=== PATIENT | female | born 1935 | race Caucasian/White ===

== ENCOUNTER 2019-03-02 19:21 | Inpatient (IN) | payer MEDICARE, OTHER ==
[2019-03-02 20:02] LABS: CHLORIDE,CL 109 mEq/L (98-106); SODIUM,NA 144 mEq/L (136-145)
--- NOTE | 2019-03-02 20:14 | EDM.PDOC ---
ED HPI GENERAL MEDICAL PROBLEM - General Chief Complaint: General Stated Complaint: abd pain Time Seen by Provider: 03/02/19 19:45 Source of Information: Reports: Patient History Limitations: Reports: No Limitations - History of Present Illness INITIAL COMMENTS - FREE TEXT/NARRATIVE: Yenifer is a 84 yr old female who started having abdominal pain roughly a week ago. States the pain would come and go but today has been more constant. She states it starts in her right upper quadrant and radiates around to her mid abdomen. She admits to multiple episodes of diarrhea which has been daily since onset as well. She states today she started having dry heaves but nothing would come up. Last meal was for dinner and had some yogurt. She is still passing gas and does get some relief. Denies any blood in her stools, states it is more mucous than anything. Has been on antibiotics recently but isn't sure what it is. I reviewed Yenifer's clinic chart and it appears she has been dealing with RUQ pain for since the beginning of December and recently underwent a CT scan of the abdomen/pelvis. In review of the CT results, it appears she has some splenomegaly and masses within the spleen. She is suppose to be undergoing biopsy at [facility] to rule out lymphoma. Upper Abdomen Pain Score (Numeric/FACES): 6 - Related Data Allergies Allergy/AdvReac Type Severity Reaction Status Date / Time No Known Allergies Allergy Verified 03/02/19 19:30 Home Meds: Home Meds Furosemide [Lasix] 40 mg PO DAILY 03/27/14 [History] Verapamil [Verelan] 240 mg PO DAILY 03/27/14 [History] Morphine [MS Contin] 15 mg PO BID 03/01/17 [History] ALPRAZolam [Alprazolam] 0.25 mg PO Q8HR PRN 03/02/18 [History] Furosemide [Lasix] 20 mg PO WITHLUNCH 03/02/18 [History] Pantoprazole [ProTONIX] 40 mg PO DAILY 03/02/19 [History] Past Medical History HEENT History: Reports: Cataract Cardiovascular History: Reports: Heart Failure, High Cholesterol, Hypertension Respiratory History: Reports: None Gastrointestinal History: Reports: GERD, Other (See Below) (splenomegaly) Genitourinary History: Reports: Urinary Incontinence Musculoskeletal History: Reports: Osteoarthritis, Osteoporosis Psychiatric History: Reports: Anxiety, Depression Hematologic History: Reports: Anemia, Idiopathic Thrombocytopenia - Past Surgical History GI Surgical History: Reports: Appendectomy, Cholecystectomy Female Surgical History: Reports: Hysterectomy, Tubal Ligation Musculoskeletal Surgical History: Reports: Knee Replacement Social & Family History - Family History Family Medical History: Noncontributory - Tobacco Use Smoking Status *Q: Never Smoker Second Hand Smoke Exposure: No - Alcohol Use Alcohol Use History: No - Living Situation & Occupation Living situation: Reports: Alone Occupation: Retired ED ROS GENERAL - Review of Systems Review Of Systems: See Below Constitutional: Reports: Decreased Appetite. Denies: Fever, Chills HEENT: Reports: No Symptoms Respiratory: Reports: No Symptoms. Denies: Shortness of Breath, Wheezing, Cough Cardiovascular: Reports: No Symptoms. Denies: Chest Pain, Lightheadedness, Palpitations GI/Abdominal: Reports: Abdominal Pain, Diarrhea, Flatus, Mucous in Stool, Nausea , Vomiting (dry heaves). Denies: Black Stool, Bloody Stool, Hematemesis, Hematochezia : Reports: Incontinence. Denies: Dysuria, Hematuria Musculoskeletal: Reports: No Symptoms Skin: Reports: No Symptoms Neurological: Reports: Headache Psychiatric: Reports: No Symptoms ED EXAM, GENERAL - Physical Exam Exam: See Below Exam Limited By: No Limitations General Appearance: Alert, Mild Distress Ears: Normal External Exam, Normal Canal, Normal TMs, Hearing Loss (bilateral hearing aids) Nose: Normal Inspection, Normal Mucosa, No Blood Throat/Mouth: Normal Inspection, Normal Lips, Normal Teeth, Normal Gums, Normal Oropharynx, Normal Voice, No Airway Compromise Head: Atraumatic, Normocephalic Neck: Normal Inspection, Supple Respiratory/Chest: No Respiratory Distress, Lungs Clear, Normal Breath Sounds, No Accessory Muscle Use Cardiovascular: Regular Rate, Rhythm, No Edema, No Murmur Peripheral Pulses: 2+: Posterior Tibial (L), Posterior Tibial (R), Dorsalis Pedis (L), Dorsalis Pedis (R) GI/Abdominal: No Mass, Tender (RUQ). No: Guarding, Rigid, Hepatomegaly, Splenomegaly Back Exam: No: CVA Tenderness (L), CVA Tenderness (R) Neurological: Alert, Normal Cognition Psychiatric: Normal Affect, Normal Mood Skin Exam: Warm, Dry, Intact, Normal Color, No Rash Course - Vital Signs Last Recorded V/S: Last Vital Signs Temp 96.9 F 03/02/19 19:30 Pulse 110 H 03/02/19 19:30 Resp 18 03/02/19 19:30 BP 143/91 H 03/02/19 19:30 Pulse Ox 96 03/02/19 19:30 - Orders/Labs/Meds Orders: Active Orders 24 hr Category Date Time Status Abdomen 2V AP Flat Upright [CR] Stat Exams 03/02/19 19:40 Taken Labs: Laboratory Tests 03/02/19 03/02/19 Range/Units 19:45 19:45 WBC 5.1 (5.0-10.0) 10^3/uL RBC 5.76 H (4.00-5.50) 10^6/uL Hgb 15.0 (12.0-16.0) g/dL Hct 45.0 (37.0-47.0) % MCV 78.1 L (82.0-94.0) fL MCH 26.0 L (27.0-32.0) pg MCHC 33.3 (33.0-38.0) g/dL RDW Coeff of John 15.7 H (11.0-15.0) % Plt Count 159 (150-400) 10^3/uL Neut % (Auto) 73.6 (35-85) % Lymph % (Auto) 23.0 (10-55) % [place] % (Auto) 3.2 (0-16) % Eos % (Auto) 0.2 (0-5) % Baso % (Auto) 0 (0-3) % Neut # (Auto) 3.72 (1.80-7.00) 10^3/uL Lymph # (Auto) 1.16 (1.00-4.80) 10^3/uL [place] # (Auto) 0.16 (0.00-0.80) 10^3/uL Eos # (Auto) 0.01 (0.00-0.45) 10^3/uL Baso # (Auto) 0.00 10^3/uL Sodium 144 (136-145) mEq/L Potassium 3.4 L (3.5-5.0) mEq/L Chloride 109 H (98-106) mEq/L Carbon Dioxide 26 (21-32) mmol/L BUN 13 (7-18) mg/dL Creatinine 0.8 (0.6-1.0) mg/dL Est Cr Clr Drug Dosing TNP Estimated GFR (MDRD) > 60 (>=60) mL/min Glucose 157 H (75-99) mg/dL Calcium 10.1 (8.4-10.1) mg/dL Magnesium 2.0 (1.8-2.4) mg/dL Total Bilirubin 0.4 (0.0-1.0) mg/dL AST 16 (15-37) U/L ALT 17 (12-78) U/L Alkaline Phosphatase 90 (46-116) U/L C-Reactive Protein < 0.2 L (0.2-0.8) mg/dL Total Protein 6.9 (6.4-8.2) g/dL Albumin 3.7 (3.4-5.0) g/dL Lipase 260 (73-393) U/L Departure - Departure Time of Disposition: 20:25 Disposition: Refer to Observation Clinical Impression: Ileus - Discharge Information - Problem List & Annotations (1) Ileus SNOMED Code(s): 029580226 Code(s): K56.7 - ILEUS, UNSPECIFIED Status: Acute Current Visit: Yes - Problem List Review Problem List Initiated/Reviewed/Updated: Yes - My Orders Last 24 Hours: My Active Orders 03/02/19 19:40 Abdomen 2V AP Flat Upright [CR] Stat - Assessment/Plan Admission H&P: Please use this note as an admission H&P Last 24 Hours: My Active Orders 03/02/19 19:40 Abdomen 2V AP Flat Upright [CR] Stat Plan: Laboratory findings were unremarkable. Upright abdominal images did show what appears to be air/fluid levels, which may be secondary to ileus. With acute diarrhea and recent antibiotic use, will get stool studies to rule out c. diff. Yenifer will remain NPO and will give IV fluids tonight. Morphine for pain control. Will give IV pantoprazole as well. Yenifer verbalized understanding and will transfer to floor in satisfactory/stable condition.
[2019-03-02] MEDS ORDERED: Ondansetron 4 MG/2 ML SDV IV PRN (20:39)
[2019-03-02] MEDS ORDERED: ALPRAZolam 0.25 MG Tab PO PRN (20:39)
[2019-03-02] MEDS ORDERED: Sodium Chloride 0.9% 10 ML Syringe FLUSH PRN (20:39)
[2019-03-02] MEDS ORDERED: Morphine 2 MG/ML Syringe IVPUSH PRN (20:39)
[2019-03-02] MEDS: Sodium Chloride 0.9% 1,000 ML IV SCH (21:13)
[2019-03-02] MEDS: Enoxaparin 40 MG/0.4 ML Syringe SUBCUT SCH (21:14)
[2019-03-02] MEDS: Pantoprazole 40 MG Vial IVPUSH SCH (21:14)
[2019-03-02] MEDS: Acetaminophen 325 MG Tab PO PRN (23:52)
[2019-03-03] MEDS: Acetaminophen 325 MG Tab PO PRN ×2 (03:57→21:35)
[2019-03-03 07:21] LABS: CHLORIDE,CL 111 mEq/L (98-106); SODIUM,NA 145 mEq/L (136-145)
[2019-03-03] MEDS: Sodium Chloride 0.9% 1,000 ML IV SCH ×2 (09:07→21:32)
[2019-03-03] MEDS ORDERED: Oxyquinoline/Emollient 0.3% Oint 1 OZ Canister TOP PRN (11:24)
[2019-03-03] MEDS: FUROSEMIDE 40 MG PO SCH ×2 (11:30→11:33)
[2019-03-03] MEDS: VERAPAMIL 240 MG PO SCH (11:33)
[2019-03-03] MEDS: MORPHINE 15 MG PO SCH ×2 (11:34→20:28)
[2019-03-03] MEDS: Furosemide 20 MG Tab PO SCH (11:34)
--- NOTE | 2019-03-03 12:28 | PN ---
DATE: 03/03/2019 S: Yenifer is an 84-year-old female who was seen yesterday evening in the emergency room coming with concerns of abdominal pain that she has had for roughly about a week. The pains did wax and wane, wore off in her right upper quadrant and radiated to mid abdomen area. She was having lots of diarrhea the last week as well. She did have a little bit of dry heaving yesterday. She states that the symptoms have improved gradually overnight. She states she does not have any more nausea and has not had any further dry heaves or vomiting. She states the pain has lessened as well. She states that once in a while, she will get a little bit of discomfort, however, it is tolerable. She does feel that she is showing good progression. I did review her chart in regard to some splenomegaly that she had been dealing with. She does state today that she did have a specialist involved who did not feel a biopsy was necessary. CT scan was repeated and did not show any masses within the spleen itself. She did not know any other further information in regard to this. I did review her clinic chart and it does not talk about this past referral to specialist. O: VITAL SIGNS: Blood pressure 146/79, temp is 98.9. She did have a low-grade fever throughout the night, however, she has been afebrile this morning. Oxygen sats 97% on room air, respiratory rate of 18, pulse of 87. GENERAL: A pleasant, cooperative female. She is resting comfortably. Does not really appear to be in any acute distress. Answers all questions appropriately. HEENT: Grossly unremarkable. LUNGS: Clear to auscultation. I did not hear any adventitious sounds. Respirations are nonlabored. CARDIAC: Regular rate and rhythm. No murmurs noted. No pedal edema is noted. ABDOMEN: Soft. Bowel sounds are present, normoactive. Improved from yesterday. No organomegaly. No guarding or rigidity is noted. I do not feel any enlargement of the spleen itself either. SKIN: Uniformly pink, warm, and dry. ASSESSMENT: 1. ACUTE DIARRHEA, IMPROVING. 2. QUESTIONABLE ILEUS. P: We will look at advance in diet today. We will keep her on IV fluids throughout the day today. Again, we will closely monitor. We will give fluids at a slow rate, currently getting fluids at 80 mL/h which we will continue until the morning, and look at discontinuing in the morning. I will encourage Nursing to ambulate with her today. We will possibly look at repeat abdomen films in the morning. Yenifer did verbalize complete understanding. We will reassess in the morning. SARAH BETH/WENCESLAO /[id number] KATHERIN
[2019-03-03] MEDS: Pantoprazole 40 MG Vial IVPUSH SCH (20:28)
[2019-03-03] MEDS: Enoxaparin 40 MG/0.4 ML Syringe SUBCUT SCH (20:28)
[2019-03-03] MEDS ORDERED: Ibuprofen 200 MG Tab PO PRN (23:47)
[2019-03-04] MEDS: VERAPAMIL 240 MG PO SCH (07:27)
[2019-03-04] MEDS: FUROSEMIDE 40 MG PO SCH (07:27)
[2019-03-04] MEDS: MORPHINE 15 MG PO SCH ×2 (07:28→19:47)
[2019-03-04] MEDS: Sodium Chloride 0.9% 1,000 ML IV SCH ×2 (08:36→21:19)
[2019-03-04] MEDS: Furosemide 20 MG Tab PO SCH (11:48)
--- NOTE | 2019-03-04 12:54 | PN ---
DATE: 03/04/2019 S: Yenifer is an 84-year-old female, who was initially admitted on 03/02/2019 with concerns of abdominal pain that she is having for up to about a week. Pain did seem to wax and wane. She was having a lot of diarrhea with it during the last week. Yesterday, she was doing quite well. We did advance her diet throughout the day, in which when she did get the solid food, she started having increased abdominal discomfort and watery diarrhea. X-ray on admission did question whether there was ileus. She has had no vomiting since admission. She states presently that she does not really have any discomfort this morning. She does correlate when she does have solid foods, it does give her some discomfort. Otherwise, she states that she is feeling well. She has been getting IV fluids at 80 mL an hour. O: VITAL SIGNS: Blood pressure is 132/74, temperature of 98, O2 sats 97% on room air, respiratory rate of 18 with a pulse of 76. GENERAL: Pleasant, cooperative female. She does not really appear to be in any distress. No pain at this present time. She is lying in her bed. Having normal conversation with me. HEENT: Grossly unremarkable. LUNGS: Clear to auscultation. I did not hear any adventitious sounds. Respirations are equal and nonlabored. No wheezes, rhonchi, or rales. CARDIAC: Regular rate and rhythm. No murmurs noted. No pedal edema is noted. ABDOMEN: Soft. Mild left upper quadrant and left mid to lower quadrant discomfort upon palpation. There is no guarding or rigidity involved with this. No distention of the abdomen. No splenomegaly is noted. ASSESSMENT: 1. ACUTE DIARRHEA. 2. QUESTIONABLE ILEUS. 3. HISTORY OF SPLENOMEGALY. P: We are going to discontinue her current diet and put her back on a full liquid diet at this point in time as she seemed to do quite well with this. We will go ahead and get a CT scan of the abdomen and pelvis to look for any other causes of her acute diarrhea. She has had stool cultures completed, no wbc's and negative Clostridium difficile was noted. Again, we will get her up and ambulate today as tolerated. SARAH BETH/WENCESLAO /[id number]
[2019-03-04] MEDS ORDERED: Iopamidol 612 MG/ML 100 ML Bottle IVPUSH ONE (14:00)
[2019-03-04] MEDS: Enoxaparin 40 MG/0.4 ML Syringe SUBCUT SCH (19:47)
[2019-03-04] MEDS: Pantoprazole 40 MG Vial IVPUSH SCH (19:47)
[2019-03-05] MEDS: Acetaminophen 325 MG Tab PO PRN (04:39)
[2019-03-05] MEDS: FUROSEMIDE 40 MG PO SCH (07:55)
[2019-03-05] MEDS: VERAPAMIL 240 MG PO SCH (07:55)
[2019-03-05] MEDS: MORPHINE 15 MG PO SCH (09:22)
[2019-03-05] MEDS ORDERED: Morphine 15 MG Tab.ER PO PRN (09:23)
[2019-03-05] MEDS: Sodium Chloride 0.9% 1,000 ML IV SCH ×2 (10:29→23:06)
[2019-03-05] MEDS: Furosemide 20 MG Tab PO SCH ×2 (11:46→11:47)
[2019-03-05] MEDS ORDERED: Enoxaparin 40 MG/0.4 ML Syringe SUBCUT SCH (20:00)
--- NOTE | 2019-03-05 20:18 | PCM.PN ---
- General Info Date of Service: 03/05/19 Admission Dx/Problem (Free Text): Abdominal Pain Functional Status: Reports: Pain Controlled, Tolerating Diet, Ambulating - Review of Systems General: Denies: Fever HEENT: Reports: No Symptoms Pulmonary: Denies: Shortness of Breath, Cough Cardiovascular: Denies: Chest Pain, Edema, Lightheadedness Gastrointestinal: Reports: Abdominal Pain, Diarrhea, Nausea. Denies: Vomiting Genitourinary: Reports: No Symptoms Musculoskeletal: Reports: No Symptoms Skin: Reports: No Symptoms Neurological: Reports: No Symptoms - Patient Data Vitals - Most Recent: Last Vital Signs Temp 99.1 F 03/05/19 19:18 Pulse 69 03/05/19 19:18 Resp 18 03/05/19 19:18 BP 137/64 03/05/19 19:18 Pulse Ox 98 03/05/19 19:18 Weight - Most Recent: 163 lb 6.4 oz I&O - Last 24 Hours: Intake & Output 03/05/19 03/05/19 03/05/19 06:59 14:59 22:59 Intake Total 1000 Balance 1000 Med Orders - Current: Current Medications Acetaminophen (Tylenol) 650 mg PO Q4H PRN PRN Reason: Pain (Mild 1-3)/fever Last Admin: 03/05/19 04:39 Dose: 650 mg Alprazolam (Xanax) 0.25 mg PO Q8H PRN PRN Reason: Anxiety Enoxaparin Sodium (Lovenox) 40 mg SUBCUT DAILY@1999 [facility] Last Admin: 03/05/19 19:19 Dose: 40 mg Furosemide (Lasix) 40 mg PO DAILY [facility] Last Admin: 03/05/19 07:55 Dose: 40 mg Sodium Chloride (Normal Saline) 1,000 mls @ 80 mls/hr IV ASDIRECTED [facility] Last Admin: 03/05/19 10:29 Dose: 80 mls/hr Ibuprofen (Motrin) 400 mg PO Q6H PRN PRN Reason: Fever Morphine Sulfate (Morphine) 2 mg IVPUSH Q2H PRN PRN Reason: Pain (severe 7-10) Last Admin: 03/04/19 08:47 Dose: 2 mg Morphine Sulfate (Ms Contin) 15 mg PO BID PRN PRN Reason: Pain Ondansetron HCl (Zofran) 4 mg IV Q4H PRN PRN Reason: Nausea/Vomiting Last Admin: 03/04/19 08:37 Dose: 4 mg Oxyquinoline Sulfate (Bag [place] Oint) 0 oz TOP ASDIRECTED PRN PRN Reason: Diarrhea Last Admin: 03/03/19 11:39 Dose: 1 applic Pantoprazole Sodium (Protonix Iv) 40 mg IVPUSH DAILY@0700 [facility] Sodium Chloride (Saline Flush) 10 ml FLUSH ASDIRECTED PRN PRN Reason: Keep Vein Open Verapamil HCl (Calan Sr) 240 mg PO DAILY [facility] Last Admin: 03/05/19 07:55 Dose: 240 mg Discontinued Medications Enoxaparin Sodium (Lovenox) 40 mg SUBCUT Q24H [facility] Last Admin: 03/04/19 19:47 Dose: 40 mg Furosemide (Lasix) 20 mg PO WITHLUNCH [facility] Last Admin: 03/05/19 11:47 Dose: Not Given Iopamidol (Isovue-300 (61%)) 100 ml IVPUSH ONETIME ONE Stop: 03/04/19 14:01 Last Admin: 03/04/19 14:33 Dose: 100 ml Morphine Sulfate (Ms Contin) 15 mg PO BID [facility] Last Admin: 03/05/19 09:22 Dose: Not Given Pantoprazole Sodium (Protonix Iv) 40 mg IVPUSH Q24H [facility] Last Admin: 03/04/19 19:47 Dose: 40 mg - Exam General: Alert, Oriented HEENT: Mucous Membr. Moist/[place] Neck: Supple Lungs: Clear to Auscultation, Normal Respiratory Effort Cardiovascular: Regular Rate, Regular Rhythm GI/Abdominal Exam: Normal Bowel Sounds, Soft, Tender (upper quadrants) Extremities: Normal Inspection, No Pedal Edema Skin: Warm, Dry Neurological: No New Focal Deficit - Problem List & Annotations (1) Abdominal pain SNOMED Code(s): 77435980 Code(s): R10.9 - UNSPECIFIED ABDOMINAL PAIN Status: Acute Priority: High Current Visit: Yes Qualifiers: Abdominal location: generalized Qualified Code(s): R10.84 - Generalized abdominal pain (2) Diarrhea SNOMED Code(s): 32992294 Code(s): R19.7 - DIARRHEA, UNSPECIFIED Status: Acute Priority: High Current Visit: Yes Qualifiers: Diarrhea type: unspecified type Qualified Code(s): R19.7 - Diarrhea, unspecified - Problem List Review Problem List Initiated/Reviewed/Updated: Yes - Assessment Assessment:: Abdominal Pain Diarrhea - Plan Plan:: Patient continues to have diffuse mild abdominal discomfort. States notes more acute pain in the upper quadrants/under the breasts. Relates she had many loose stools during the night. Tolerating full liquids. In ambulating without difficulty. Patient did have a CT scan of her abdomen, awaiting report. Had a CT prior with noted splenomegaly. She states she was seen by GI in [place] and they felt her spleen was enlarged due to infection, did not feel a biopsy was needed at that time. Labs show WBC of 4.6, CRP negative. BMP negative. Will continue to follow, await CT report. Will review prior work up/GI report.
[2019-03-06] MEDS ORDERED: Pantoprazole 40 MG Vial IVPUSH SCH (07:00)
[2019-03-06] MEDS: VERAPAMIL 240 MG PO SCH (07:27)
[2019-03-06] MEDS: FUROSEMIDE 40 MG PO SCH (07:27)
--- NOTE | 2019-03-06 22:07 | PCM.DCSUM1 ---
Discharge Summary - Hospital Course Free Text/Narrative:: Yenifer is a 84 year who presented to the ER with ongoing abdominal pain for the last week. Pain comes and goes but became more constant. She has been experiencing upper quadrant pain. She started having dry heaves but no vomiting. Had issues with constipation and most recently with diarrhea. Was found on CT scan in December to have splenomegaly but GI did not feel biopsy was yet warranted. [place] that the inflammation was likely infectious and recommended follow up of this after 2 months. Patient relates that this patient is somewhat different than what she has been experiencing. Was admitted for IV fluids, started on flagyl. Collect stool specimens. Diagnosis: Stroke: No Modified Anita Scale: No Symptoms at All Modified Micaela Scale Score: 0 - Discharge Data Discharge Date: 03/06/19 Discharge Disposition: Home, Self-Care 01 Condition: Good - Discharge Diagnosis/Problem(s) (1) Abdominal pain SNOMED Code(s): 73916591 ICD Code: R10.9 - UNSPECIFIED ABDOMINAL PAIN Status: Acute Priority: High Qualifiers: Abdominal location: generalized Qualified Code(s): R10.84 - Generalized abdominal pain (2) Diarrhea SNOMED Code(s): 69644781 ICD Code: R19.7 - DIARRHEA, UNSPECIFIED Status: Acute Priority: High Qualifiers: Diarrhea type: unspecified type Qualified Code(s): R19.7 - Diarrhea, unspecified - Patient Summary/Data Complications: none Hospital Course: Patient doing well today. Still has intermittent upper quadrant pain at times, which has been ongoing now for the last month or so. Has been afebrile. Diarrhea has slowed, minimal loose stools now. CT scan was done while here, still shows splenomegaly, will need follow up MRI. WBC has remained stable. CRP negative. Stool specimens were negative. Vital signs stable. Will have MRI on Tuesday. Follow up with Sondra edmond for results. - Patient Instructions Diet: Usual Diet as Tolerated Activity: As Tolerated Other/Special Instructions: MRI of abdomen - Discharge Plan *PRESCRIPTION DRUG MONITORING PROGRAM REVIEWED*: No *COPY OF PRESCRIPTION DRUG MONITORING REPORT IN PATIENT BOSSMAN: No Home Medications: Home Meds Furosemide [Lasix] 40 mg PO DAILY 03/27/14 [History] Verapamil [Verelan] 240 mg PO DAILY 03/27/14 [History] Morphine [MS Contin] 15 mg PO BID PRN 03/01/17 [History] ALPRAZolam [Alprazolam] 0.25 mg PO Q8HR PRN 03/02/18 [History] Pantoprazole [ProTONIX] 40 mg PO DAILY 03/02/19 [History] Forms: ED Department Discharge Referrals: Sondra Boland PA-C [ED Midlevel Provider] - (Follow up with Sondra Boland in 2 weeks ) - Discharge Summary/Plan Comment DC Time >30 min.: No - General Info Date of Service: 03/06/19 Admission Dx/Problem (Free Text: Abdominal Pain Functional Status: Reports: Pain Controlled, Tolerating Diet, Ambulating - Review of Systems General: Denies: Fever, Weakness, Fatigue HEENT: Reports: No Symptoms Pulmonary: Denies: Shortness of Breath, Cough Cardiovascular: Denies: Chest Pain, Edema, Lightheadedness Gastrointestinal: Reports: Abdominal Pain, Diarrhea (states diarrhea much improved). Denies: Decreased Appetite, Nausea, Vomiting Genitourinary: Reports: No Symptoms Musculoskeletal: Reports: No Symptoms Skin: Reports: No Symptoms Neurological: Reports: No Symptoms - Patient Data Vitals - Most Recent: Last Vital Signs Temp 97.8 F 03/06/19 04:00 Pulse 68 03/06/19 07:28 Resp 18 03/06/19 07:28 BP 143/61 H 03/06/19 07:28 Pulse Ox 98 03/06/19 07:28 Weight - Most Recent: 163 lb 6.4 oz Med Orders - Current: Current Medications Discontinued Medications Acetaminophen (Tylenol) 650 mg PO Q4H PRN PRN Reason: Pain (Mild 1-3)/fever Last Admin: 03/05/19 04:39 Dose: 650 mg Alprazolam (Xanax) 0.25 mg PO Q8H PRN PRN Reason: Anxiety Enoxaparin Sodium (Lovenox) 40 mg SUBCUT Q24H [facility] Last Admin: 03/04/19 19:47 Dose: 40 mg Enoxaparin Sodium (Lovenox) 40 mg SUBCUT DAILY@1999 [facility] Last Admin: 03/05/19 19:19 Dose: 40 mg Furosemide (Lasix) 20 mg PO WITHLUNCH [facility] Last Admin: 03/05/19 11:47 Dose: Not Given Furosemide (Lasix) 40 mg PO DAILY [facility] Last Admin: 03/06/19 07:27 Dose: 40 mg Sodium Chloride (Normal Saline) 1,000 mls @ 80 mls/hr IV ASDIRECTED [facility] Last Admin: 03/05/19 23:06 Dose: 80 mls/hr Ibuprofen (Motrin) 400 mg PO Q6H PRN PRN Reason: Fever Iopamidol (Isovue-300 (61%)) 100 ml IVPUSH ONETIME ONE Stop: 03/04/19 14:01 Last Admin: 03/04/19 14:33 Dose: 100 ml Morphine Sulfate (Morphine) 2 mg IVPUSH Q2H PRN PRN Reason: Pain (severe 7-10) Last Admin: 03/04/19 08:47 Dose: 2 mg Morphine Sulfate (Ms Contin) 15 mg PO BID [facility] Last Admin: 03/05/19 09:22 Dose: Not Given Morphine Sulfate (Ms Contin) 15 mg PO BID PRN PRN Reason: Pain Ondansetron HCl (Zofran) 4 mg IV Q4H PRN PRN Reason: Nausea/Vomiting Last Admin: 03/04/19 08:37 Dose: 4 mg Oxyquinoline Sulfate (Bag [place] Oint) 0 oz TOP ASDIRECTED PRN PRN Reason: Diarrhea Last Admin: 03/03/19 11:39 Dose: 1 applic Pantoprazole Sodium (Protonix Iv) 40 mg IVPUSH Q24H [facility] Last Admin: 03/04/19 19:47 Dose: 40 mg Pantoprazole Sodium (Protonix Iv) 40 mg IVPUSH DAILY@0700 [facility] Last Admin: 03/06/19 06:17 Dose: 40 mg Sodium Chloride (Saline Flush) 10 ml FLUSH ASDIRECTED PRN PRN Reason: Keep Vein Open Verapamil HCl (Calan Sr) 240 mg PO DAILY [facility] Last Admin: 03/06/19 07:27 Dose: 240 mg - Exam General: Reports: Alert, Oriented HEENT: Reports: Mucous Membr. Moist/[place] Neck: Reports: Supple Lungs: Reports: Clear to Auscultation, Normal Respiratory Effort Cardiovascular: Reports: Regular Rate, Regular Rhythm GI/Abdominal Exam: Normal Bowel Sounds, Soft, Tender (upper quadrants) Extremities: Normal Inspection, No Pedal Edema Skin: Reports: Warm, Dry Neurological: Reports: No New Focal Deficit
== END 2019-03-06 16:30 | disposition home or self-care (01) | DRG 392 ==
LOC: CC.ED 19:21 → CC.MS 20:15 → OBSVTOIN 03-04 10:54
PROVIDERS: ADMIT Physician Assistant Medical; ATTEND Family Medicine
DX: R19.7 Diarrhea, unspecified (principal); I11.0 Hypertensive heart disease with heart failure; H26.9 Unspecified cataract; E78.00 Pure hypercholesterolemia, unspecified; K21.9 Gastro-esophageal reflux disease without esophagitis; Z66 Do not resuscitate; I50.9 Heart failure, unspecified; M19.91 Primary osteoarthritis, unspecified site; Z96.659 Presence of unspecified artificial knee joint; M81.0 Age-related osteoporosis without current pathological fracture; F41.9 Anxiety disorder, unspecified; F32.9 Major depressive disorder, single episode, unspecified; Z90.49 Acquired absence of other specified parts of digestive tract; Z90.710 Acquired absence of both cervix and uterus; Z98.51 Tubal ligation status; Z79.899 Other long term (current) drug therapy
CPT/HCPCS: 36415; 74019; 74177; 80048; 80053; 83690; 83735; 85025; 86140; 87045; 87046; 87493; 89055; 96361; 96372; 96374; 96375; 96376; 99285-25; A9270-GY; C9113; G0378; J1650; J2270; J2405; J7030; Q9967

== ENCOUNTER 2021-06-13 11:00 | Emergency (ER) | payer MEDICARE, OTHER ==
--- NOTE | 2021-06-13 11:40 | EDM.PDOC ---
ED HPI GENERAL MEDICAL PROBLEM - General Chief Complaint: Lower Extremity Injury/Pain Stated Complaint: SWOLLEN LEGS Time Seen by Provider: 06/13/21 11:25 Source of Information: Reports: Patient History Limitations: Reports: No Limitations - History of Present Illness INITIAL COMMENTS - FREE TEXT/NARRATIVE: Yenifer is an 86 year old female who presents to ER with complaints of increased swelling in her legs for the last few days. States left leg is worse than the right and has history of blood clots in the right. Discomfort noted during the night. Admits that due to the heat, has not been outside much or as active. No increased salt intake. Denies shortness of breath. No chest pain. No nausea/vomiting or abdominal pain. Does take Lasix daily and has been compli ant with that. Wears support stockings on her legs. States shoes are fitting much more tightly. Onset: Gradual Duration: Day(s):, Getting Worse Location: Reports: Lower Extremity, Left, Lower Extremity, Right Quality: Reports: Ache Severity: Mild Associated Symptoms: Reports: Shortness of Breath. Denies: Confusion, Chest Pain, Cough, Fever/Chills, Loss of Appetite, Malaise, Nausea/Vomiting, Weakness Left Ankle Pain Score (Numeric/FACES): 3 - Related Data Allergies Allergy/AdvReac Type Severity Reaction Status Date / Time No Known Allergies Allergy Verified 06/13/21 11:10 Home Meds: Home Meds Furosemide [Lasix] 40 mg PO DAILY 03/27/14 [History] Verapamil [Verelan] 240 mg PO DAILY 03/27/14 [History] Morphine [MS Contin] 15 mg PO BID PRN 03/01/17 [History] Oxybutynin [Oxybutynin ER] 5 mg PO DAILY 09/05/19 [History] Past Medical History HEENT History: Reports: Cataract Cardiovascular History: Reports: Heart Failure, High Cholesterol, Hypertension Respiratory History: Reports: None Gastrointestinal History: Reports: GERD, Other (See Below) Genitourinary History: Reports: Urinary Incontinence Musculoskeletal History: Reports: Osteoarthritis, Osteoporosis Psychiatric History: Reports: Anxiety, Depression Hematologic History: Reports: Anemia, Idiopathic Thrombocytopenia - Infectious Disease History Infectious Disease History: Reports: None - Past Surgical History GI Surgical History: Reports: Appendectomy, Cholecystectomy Female Surgical History: Reports: Hysterectomy, Tubal Ligation Musculoskeletal Surgical History: Reports: Knee Replacement Social & Family History - Family History Family Medical History: No Pertinent Family History - Tobacco Use Tobacco Use Status *Q: Never Tobacco User - Caffeine Use Caffeine Use: Reports: Coffee - Recreational Drug Use Recreational Drug Use: No - Living Situation & Occupation Living situation: Reports: Alone Occupation: Retired Review of Systems - Review of Systems Review Of Systems: See Below Constitutional: Denies: Chills, Diaphoresis, Fever, Weakness Eyes: Reports: No Symptoms Ears: Denies: Dizziness Nose: Reports: No Symptoms Mouth/Throat: Reports: No Symptoms Respiratory: Denies: Shortness of Breath, Cough Cardiovascular: Reports: Edema. Denies: Chest Pain, Palpitations GI/Abdominal: Denies: Abdominal Pain, Nausea, Vomiting Genitourinary: Reports: No Symptoms Musculoskeletal: Reports: Leg Pain Skin: Reports: No Symptoms Neurological: Denies: Weakness ED EXAM, GENERAL - Physical Exam Exam: See Below Exam Limited By: No Limitations General Appearance: Alert, WD/WN, No Apparent Distress Ears: Normal External Exam, Normal TMs Nose: Normal Inspection, Normal Mucosa, No Blood Throat/Mouth: Normal Inspection, Normal Oropharynx Head: Normocephalic Neck: Normal Inspection, Supple, Non-Tender Respiratory/Chest: No Respiratory Distress, Lungs Clear, Normal Breath Sounds Cardiovascular: Regular Rate, Rhythm GI/Abdominal: Normal Bowel Sounds, Soft, Non-Tender Extremities: Pedal Edema (2+ pitting edema to LLE, 1+ RLE) Neurological: Alert, Oriented Skin Exam: Warm, Dry #1 Interpretation EKG Date: 06/13/21 Rhythm: NSR [place]: Normal P-Wave: Present QRS: Normal ST-T: Normal Comparison: NA - No Prior EKG Course - Vital Signs Last Recorded V/S: Last Vital Signs Temp 98.2 F 06/13/21 11:11 Pulse 100 06/13/21 11:11 Resp 17 06/13/21 11:11 BP 131/75 06/13/21 11:11 Pulse Ox 97 06/13/21 11:11 - Orders/Labs/Meds Orders: Active Orders 24 hr Category Date Time Status EKG Documentation Completion [RC] ROUTINE Care 06/13/21 11:31 Active Chest 2V [CR] Stat Exams 06/13/21 11:31 Taken Labs: Laboratory Tests 06/13/21 06/13/21 06/13/21 Range/Units 11:25 11:25 11:25 WBC 4.8 (4.0-11.0) 10^3/uL RBC 4.20 (4.00-5.50) x10^6/uL Hgb 9.7 L (12.0-16.0) g/dL Hct 31.3 L (37.0-47.0) % MCV 74.5 L (83.0-97.0) fL MCH 23.1 L (27.0-32.0) pg MCHC 31.0 L (32.0-36.0) g/dL RDW Coeff of John 18.1 H (11.0-15.0) % Plt Count 145 L (150-400) 10^3/uL Immature Gran % (Auto) 0.2 (0.0-4.9) % Neut % (Auto) 53.1 (41-71) % Lymph % (Auto) 39.0 (24-44) % [place] % (Auto) 6.3 (0-10) % Eos % (Auto) 1.0 (0-6) % Baso % (Auto) 0.4 (0-1) % Neut # (Auto) 2.54 (1.80-8.00) x10^3/uL Lymph # (Auto) 1.87 (0.60-5.00) 10^3/uL [place] # (Auto) 0.30 (0.00-1.50) 10^3/uL Eos # (Auto) 0.05 (0.00-1.50) 10^3/uL Baso # (Auto) 0.02 (0.00-0.50) 10^3/uL Immature Gran # (Auto) 0.01 (0.00-0.49) 10^3/uL D-Dimer, Quantitative 1.43 H (0.00-0.50) Sodium 138 (136-145) mEq/L Potassium 3.4 L (3.5-5.0) mEq/L Chloride 102 (98-106) mEq/L Carbon Dioxide 28 (21-32) mmol/L BUN 13 (7-18) mg/dL Creatinine 0.8 (0.6-1.0) mg/dL Est Cr Clr Drug Dosing 40.66 mL/min Estimated GFR (MDRD) > 60 (>=60) mL/min Glucose 106 H (75-99) mg/dL Calcium 8.3 L (8.4-10.1) mg/dL Total Bilirubin 0.9 (0.0-1.0) mg/dL AST 20 (15-37) U/L ALT 15 (12-78) U/L Alkaline Phosphatase 106 (46-116) U/L NT-Pro-B Natriuret Pep 725 (0-1000) pg/mL Total Protein 5.5 L (6.4-8.2) g/dL Albumin 2.7 L (3.4-5.0) g/dL - Re-Assessments/Exams Free Text/Narrative Re-Assessment/Exam: 06/13/21 12:24 Lab results noted. D-Dimer is elevated. No ultrasound coverage here. Did contact [facility], no availability there either. Contacted Et[facility] in [place] who will do ultrasound when able and fax report back to us here in [place]. Patient aware. Does not feel able to drive self to [place] for test. 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 patient is agreeable. 06/13/21 16:22 Ultrasound is negative for DVT. Does have lymphadenopathy in the inguinal area that will likely require follow up. Will increase Lasix. Patient agrees. Will have her follow up with Sondra on Tuesday in [place]. Departure - Departure Time of Disposition: 16:24 Disposition: Home, Self-Care 01 Clinical Impression: Peripheral edema, Inguinal lymphadenopathy - Discharge Information *PRESCRIPTION DRUG MONITORING PROGRAM REVIEWED*: No *COPY OF PRESCRIPTION DRUG MONITORING REPORT IN PATIENT BOSSMAN: No Instructions: Edema, [id number] Referrals: Sondra Boland PA-C [Primary Care Provider] - Forms: ED Department Discharge Additional Instructions: 1. Elevate legs throughout the day 2. Continue with compression stockings 3. Watch salt intake 4. Increase Lasix to 40 mg to twice a day. Take first dose in am and second dose at noon 5. Follow up with Sondra on Tuesday in [place]. Will need lab work at that time. Sepsis Event Note (ED) - Evaluation Sepsis Screening Result: No Definite Risk - Focused Exam Vital Signs: Vital Signs Temp Pulse Resp BP Pulse Ox 06/13/21 11:11 98.2 F 100 17 131/75 97 - My Orders Last 24 Hours: My Active Orders 06/13/21 11:31 EKG Documentation Completion [RC] ROUTINE Chest 2V [CR] Stat - Assessment/Plan Last 24 Hours: My Active Orders 06/13/21 11:31 EKG Documentation Completion [RC] ROUTINE Chest 2V [CR] Stat
[2021-06-13 11:53] LABS: CHLORIDE,CL 102 mEq/L (98-106); SODIUM,NA 138 mEq/L (136-145)
== END 2021-06-13 16:30 | disposition home or self-care (01) ==
LOC: CC.ED 11:00
DX: R59.0 Localized enlarged lymph nodes (principal); R60.0 Localized edema; R79.1 Abnormal coagulation profile; I11.0 Hypertensive heart disease with heart failure; I50.9 Heart failure, unspecified; Z79.899 Other long term (current) drug therapy
CPT/HCPCS: 36415; 71046; 80053; 83880; 85025; 85379; 93005; 93010; 99284; 99284-25

== ENCOUNTER 2021-09-19 03:50 | Inpatient (IN) | payer MEDICARE, OTHER ==
[2021-09-19] MEDS ORDERED: GI Cocktail Oral Solution 30 ML PO ONE (04:36)
[2021-09-19 04:39] LABS: CHLORIDE,CL 102 mEq/L (98-106); SODIUM,NA 140 mEq/L (136-145)
[2021-09-19] MEDS ORDERED: Alum Hydrox/Mag Hydrox/Simeth 30 ML, Lidocaine 2% 15 ML PO ONE ×2 (04:41)
--- NOTE | 2021-09-19 05:07 | EDM.PDOC ---
ED HPI GENERAL MEDICAL PROBLEM - General Chief Complaint: General Stated Complaint: trouble swallowing Time Seen by Provider: 09/19/21 04:20 Source of Information: Reports: Patient, Family History Limitations: Reports: No Limitations - History of Present Illness INITIAL COMMENTS - FREE TEXT/NARRATIVE: Gertru Onset: Gradual Duration: Day(s):, Getting Worse Location: Reports: Head, Neck Quality: Reports: Ache, Burning Severity: Severe Worsens with: Reports: Other (swallowing) Associated Symptoms: Reports: Cough, Malaise, Nausea/Vomiting. Denies: Confusion, Chest Pain, Fever/Chills, Shortness of Breath Throat Pain Score (Numeric/FACES): 10 - Related Data Allergies Allergy/AdvReac Type Severity Reaction Status Date / Time No Known Allergies Allergy Verified 09/19/21 03:55 Home Meds: Home Meds Furosemide [Lasix] 40 mg PO DAILY 03/27/14 [History] Verapamil [Verelan] 240 mg PO DAILY 03/27/14 [History] Morphine [MS Contin] 15 mg PO BID PRN 03/01/17 [History] Allopurinol [Zyloprim] 300 mg PO DAILY 09/19/21 [History] Aspirin 325 mg PO DAILY 09/19/21 [History] Cholecalciferol (Vitamin D3) [Vitamin D3] 25 mcg PO DAILY 09/19/21 [History] Ferrous Sulfate 325 mg PO DAILY 09/19/21 [History] Lenalidomide [Revlimid] 20 mg PO DAILY 09/19/21 [History] Loperamide [Imodium] 4 mg PO DAILY PRN 09/19/21 [History] Potassium Chloride 10 meq PO DAILY 09/19/21 [History] Trospium [Sanctura] 60 mg PO DAILY 09/19/21 [History] Past Medical History HEENT History: Reports: Cataract Cardiovascular History: Reports: Heart Failure, High Cholesterol, Hypertension Respiratory History: Reports: None Gastrointestinal History: Reports: GERD, Other (See Below) Genitourinary History: Reports: Urinary Incontinence Musculoskeletal History: Reports: Osteoarthritis, Osteoporosis Psychiatric History: Reports: Anxiety, Depression Hematologic History: Reports: Anemia, Idiopathic Thrombocytopenia Oncologic (Cancer) History: Reports: Lymphoma - Infectious Disease History Infectious Disease History: Reports: None - Past Surgical History GI Surgical History: Reports: Appendectomy, Cholecystectomy Female Surgical History: Reports: Hysterectomy, Tubal Ligation Musculoskeletal Surgical History: Reports: Knee Replacement Social & Family History - Family History Family Medical History: No Pertinent Family History - Tobacco Use Tobacco Use Status *Q: Never Tobacco User Second Hand Smoke Exposure: No - Caffeine Use Caffeine Use: Reports: Coffee - Living Situation & Occupation Living situation: Reports: Alone Occupation: Retired ED ROS GENERAL - Review of Systems Review Of Systems: See Below Constitutional: Reports: Malaise, Weakness, Fatigue. Denies: Fever, Chills HEENT: Reports: Ear Pain, Rhinitis, Throat Pain, Other (dysphagia) Respiratory: Reports: Cough. Denies: Shortness of Breath Cardiovascular: Reports: Edema. Denies: Chest Pain, Lightheadedness Endocrine: Reports: Fatigue GI/Abdominal: Reports: Nausea, Vomiting. Denies: Abdominal Pain, Constipation, Diarrhea : Reports: No Symptoms Musculoskeletal: Reports: No Symptoms Skin: Reports: No Symptoms Neurological: Reports: Weakness ED EXAM, GENERAL - Physical Exam Exam: See Below Exam Limited By: No Limitations General Appearance: Alert, WD/WN, Mild Distress Ears: Other (bilateral cerumen impaction) Nose: Normal Inspection, Clear Rhinorrhea Throat/Mouth: Dysphagia, Other (posterior erythema) Head: Normocephalic Neck: Normal Inspection, Lymphadenopathy (L), Lymphadenopathy (R), Other (tenderness to palpation) Respiratory/Chest: No Respiratory Distress, Rhonchi Cardiovascular: Regular Rate, Rhythm, Systolic Murmur GI/Abdominal: Normal Bowel Sounds, Soft Extremities: Normal Inspection, Pedal Edema (2+ pitting) Neurological: Alert, Oriented Skin Exam: Warm, Dry Course - Vital Signs Last Recorded V/S: Last Vital Signs Temp 97.6 F 09/19/21 04:02 Pulse 119 H 09/19/21 04:02 Resp 19 09/19/21 04:02 BP 140/76 09/19/21 04:02 Pulse Ox 90 L 09/19/21 04:02 - Orders/Labs/Meds Orders: Active Orders 24 hr Category Date Time Status Patient Status Manage Transfer [TRANSFER] Routine ADT 09/19/21 05:07 Active Resuscitation Status Routine Resus Stat 09/19/21 05:08 Ordered Labs: Laboratory Tests 09/19/21 09/19/21 Range/Units 04:14 04:29 WBC 3.2 L (4.0-11.0) 10^3/uL RBC 3.92 L (4.00-5.50) x10^6/uL Hgb 9.6 L (12.0-16.0) g/dL Hct 30.1 L (37.0-47.0) % MCV 76.8 L (83.0-97.0) fL MCH 24.5 L (27.0-32.0) pg MCHC 31.9 L (32.0-36.0) g/dL RDW Coeff of John 19.8 H (11.0-15.0) % Plt Count 142 L (150-400) 10^3/uL Immature Gran % (Auto) 0.6 (0.0-4.9) % Neut % (Auto) 76.6 H (41-71) % Lymph % (Auto) 15.9 L (24-44) % [place] % (Auto) 6.6 (0-10) % Eos % (Auto) 0.0 (0-6) % Baso % (Auto) 0.3 (0-1) % Neut # (Auto) 2.45 (1.80-8.00) x10^3/uL Lymph # (Auto) 0.51 L (0.60-5.00) 10^3/uL [place] # (Auto) 0.21 (0.00-1.50) 10^3/uL Eos # (Auto) 0.00 (0.00-1.50) 10^3/uL Baso # (Auto) 0.01 (0.00-0.50) 10^3/uL Immature Gran # (Auto) 0.02 (0.00-0.49) 10^3/uL Sodium 140 (136-145) mEq/L Potassium 3.2 L (3.5-5.0) mEq/L Chloride 102 (98-106) mEq/L Carbon Dioxide 26 (21-32) mmol/L BUN 23 H D (7-18) mg/dL Creatinine 0.8 (0.6-1.0) mg/dL Est Cr Clr Drug Dosing 36.93 mL/min Estimated GFR (MDRD) > 60 (>=60) mL/min Glucose 168 H D (75-99) mg/dL Calcium 8.4 (8.4-10.1) mg/dL Magnesium 1.9 (1.8-2.4) mg/dL Total Bilirubin 1.0 (0.0-1.0) mg/dL AST 17 (15-37) U/L ALT 23 (12-78) U/L Alkaline Phosphatase 124 H (46-116) U/L C-Reactive Protein 18.0 H (0.2-0.8) mg/dL Total Protein 5.1 L (6.4-8.2) g/dL Albumin 2.5 L (3.4-5.0) g/dL Meds: Medications Discontinued Medications Generic Name Dose Route Start Last Admin Trade Name Ruben PRN Reason Stop Dose Admin Al Hydroxide/Mg Hydroxide 45 ml 09/19/21 04:36 Gi Cocktail Oral Solution 30 Ml PO 09/19/21 04:37 ONETIME ONE Al Hydroxide/Mg Hydroxide 30 0 ml 09/19/21 04:41 09/19/21 04:44 ml/ Lidocaine HCl 15 ml PO 09/19/21 04:42 45 ml ONETIME ONE Administration - Re-Assessments/Exams Free Text/Narrative Re-Assessment/Exam: 09/19/21 0510 GI cocktail attempted, patient unable to swallow. Increased phlegm, worsened with attempt to give GI cocktail. Contacted Dr. Ellington in regards to symp toms. Does not feel from the Rituxan. As was having mild symptoms prior, advised to give high dose steroids and antibiotics. Discussed labs with her. Advised son. Will keep observation here, start IV fluids and steroids. Hold oral meds at this time, reevaluate later today. Departure - Departure Time of Disposition: 05:06 Disposition: Refer to Observation Condition: Fair Clinical Impression: Dysphagia - Discharge Information *PRESCRIPTION DRUG MONITORING PROGRAM REVIEWED*: No *COPY OF PRESCRIPTION DRUG MONITORING REPORT IN PATIENT BOSSMAN: No Sepsis Event Note (ED) - Evaluation Sepsis Screening Result: No Definite Risk - Focused Exam Vital Signs: Vital Signs Temp Pulse Resp BP Pulse Ox 09/19/21 04:02 97.6 F 119 H 19 140/76 90 L - Problem List & Annotations (1) Dysphagia SNOMED Code(s): 66807704, 519494088 Code(s): R13.10 - DYSPHAGIA, UNSPECIFIED Status: Acute Priority: High Current Visit: Yes - Problem List Review Problem List Initiated/Reviewed/Updated: Yes - My Orders Last 24 Hours: My Active Orders 09/19/21 05:07 Patient Status Manage Transfer [TRANSFER] Routine 09/19/21 05:08 Resuscitation Status Routine - Assessment/Plan Admission H&P: Please use this note as an admission H&P Last 24 Hours: My Active Orders 09/19/21 05:07 Patient Status Manage Transfer [TRANSFER] Routine 09/19/21 05:08 Resuscitation Status Routine Assessment:: Dysphagia Plan: Admit Observation. IV fluids. IV steroids and antibiotics.
[2021-09-19] MEDS ORDERED: Acetaminophen 325 MG Tab PO PRN (05:38)
[2021-09-19] MEDS ORDERED: cefTRIAXone 1 GM Vial IVPUSH SCH (05:38)
[2021-09-19] MEDS ORDERED: Morphine 2 MG/ML SYRINGE IVPUSH PRN (05:38)
[2021-09-19] MEDS ORDERED: Sodium Chloride 0.9% 10 ML Syringe FLUSH PRN (05:38)
[2021-09-19] MEDS ORDERED: Ondansetron 4 MG/2 ML SDV IV PRN (05:38)
[2021-09-19] MEDS: methylPREDNISolone Sodium Succinate 125 MG/2 ML SDV IVPUSH SCH ×2 (06:46→17:36)
[2021-09-19] MEDS: NS + KCl 20mEq/L 1,000 ML IV SCH ×3 (07:23→22:14)
[2021-09-19] MEDS ORDERED: Furosemide 40 MG/4 ML VIAL IVPUSH SCH (11:00)
[2021-09-19] MEDS: Albuterol/Ipratropium 3.0-0.5 MG/3 ML Neb Soln NEB SCH ×3 (11:32→19:42)
[2021-09-19] MEDS: Clindamycin Phosphate in D5W 300 MG in Premix Bag 1 BAG IV SCH ×6 (11:40→22:13)
[2021-09-20] MEDS: methylPREDNISolone Sodium Succinate 125 MG/2 ML SDV IVPUSH SCH ×3 (07:33→19:21)
[2021-09-20] MEDS: Clindamycin Phosphate in D5W 300 MG in Premix Bag 1 BAG IV SCH ×8 (07:34→19:21)
[2021-09-20] MEDS: Albuterol/Ipratropium 3.0-0.5 MG/3 ML Neb Soln NEB SCH ×4 (07:44→19:21)
[2021-09-20 08:21] LABS: CHLORIDE,CL 110 mEq/L (98-106); SODIUM,NA 146 mEq/L (136-145)
[2021-09-20] MEDS: Furosemide 40 MG/4 ML VIAL IVPUSH SCH ×2 (09:41→15:49)
[2021-09-20] MEDS ORDERED: Loperamide 2 MG Cap PO PRN (11:33)
[2021-09-20] MEDS ORDERED: Morphine 15 MG Tab.ER PO PRN (11:33)
[2021-09-20] MEDS: NS + KCl 20mEq/L 1,000 ML IV SCH (11:35)
[2021-09-20] MEDS: Potassium Chloride 10 MEQ Tab.ER PO SCH (11:49)
[2021-09-20] MEDS: Aspirin 325 MG Tab PO SCH (11:49)
[2021-09-20] MEDS: Allopurinol 300 MG Tab PO SCH (11:50)
[2021-09-20] MEDS: Verapamil 240 MG Tab.ER PO SCH (12:10)
--- NOTE | 2021-09-20 13:29 | PCM.PN ---
- General Info Date of Service: 09/20/21 Admission Dx/Problem (Free Text): Dysphagia Subjective Update: Patient is feeling better today. Does feel throat is slightly better but "has settled down in to my chest". No fevers. Is weak. Has been NPO up to this point, tried ice chips this am and is doing well with these. Catheter draining clear urine. Functional Status: Reports: Pain Controlled, Ambulating. Denies: Tolerating Diet - Review of Systems General: Reports: Weakness, Fatigue. Denies: Fever HEENT: Reports: Sore Throat. Denies: Headaches Pulmonary: Reports: Shortness of Breath, Cough, Sputum Cardiovascular: Denies: Chest Pain Gastrointestinal: Denies: Abdominal Pain, Nausea, Vomiting Genitourinary: Reports: Other (catheter intact) Musculoskeletal: Reports: No Symptoms Skin: Reports: No Symptoms Neurological: Reports: Weakness - Patient Data Vitals - Most Recent: Last Vital Signs Temp 98.3 F 09/20/21 11:52 Pulse 104 H 09/20/21 11:52 Resp 20 09/20/21 11:52 BP 139/70 09/20/21 11:52 Pulse Ox 95 09/20/21 11:52 Weight - Most Recent: 123 lb 3.2 oz I&O - Last 24 Hours: Intake & Output 09/19/21 09/20/21 09/20/21 22:59 06:59 14:59 Intake Total 1080 2000 Output Total 7750 543 1381 Balance -470 -375 600 Lab Results Last 24 Hours: Laboratory Results - last 24 hr 09/20/21 09/20/21 Range/Units 07:29 07:29 WBC 2.4 L (4.0-11.0) 10^3/uL RBC 3.54 L (4.00-5.50) x10^6/uL Hgb 8.6 L (12.0-16.0) g/dL Hct 27.7 L (37.0-47.0) % MCV 78.2 L (83.0-97.0) fL MCH 24.3 L (27.0-32.0) pg MCHC 31.0 L (32.0-36.0) g/dL RDW Coeff of John 19.6 H (11.0-15.0) % Plt Count 136 L (150-400) 10^3/uL Immature Gran % (Auto) 0.4 (0.0-4.9) % Neut % (Auto) 80.2 H (41-71) % Lymph % (Auto) 13.9 L (24-44) % [place] % (Auto) 5.1 (0-10) % Eos % (Auto) 0.0 (0-6) % Baso % (Auto) 0.4 (0-1) % Neut # (Auto) 1.90 (1.80-8.00) x10^3/uL Lymph # (Auto) 0.33 L (0.60-5.00) 10^3/uL [place] # (Auto) 0.12 (0.00-1.50) 10^3/uL Eos # (Auto) 0.00 (0.00-1.50) 10^3/uL Baso # (Auto) 0.01 (0.00-0.50) 10^3/uL Immature Gran # (Auto) 0.01 (0.00-0.49) 10^3/uL Sodium 146 H (136-145) mEq/L Potassium 3.3 L (3.5-5.0) mEq/L Chloride 110 H (98-106) mEq/L Carbon Dioxide 27 (21-32) mmol/L BUN 24 H (7-18) mg/dL Creatinine 0.8 (0.6-1.0) mg/dL Est Cr Clr Drug Dosing 36.93 mL/min Estimated GFR (MDRD) > 60 (>=60) mL/min Glucose 174 H (75-99) mg/dL Calcium 8.0 L (8.4-10.1) mg/dL C-Reactive Protein 23.7 H (0.2-0.8) mg/dL NT-Pro-B Natriuret Pep 4085 H (0-1000) pg/mL Ghassan Results Last 24 Hours: Microbiology 09/20/21 10:24 Occult Blood - Preliminary Stool / Feces - Stool, Liquid Med Orders - Current: Current Medications Acetaminophen (Acetaminophen 325 Mg Tab) 650 mg PO Q4H PRN PRN Reason: Pain (Mild 1-3)/fever Albuterol/Ipratropium (Albuterol/Ipratropium 3.0-0.5 Mg/3 Ml Neb Soln) 3 ml NEB QIDRT [facility] Last Admin: 09/20/21 11:40 Dose: 3 ml Documented by: Allopurinol (Allopurinol 300 Mg Tab) 300 mg PO DAILY [facility] Last Admin: 09/20/21 11:50 Dose: 300 mg Documented by: Aspirin (Aspirin 325 Mg Tab) 325 mg PO DAILY [facility] Last Admin: 09/20/21 11:49 Dose: 325 mg Documented by: Furosemide (Furosemide 40 Mg/4 Ml Vial) 40 mg IVPUSH BIDDIURETIC [facility] Last Admin: 09/20/21 09:41 Dose: 40 mg Documented by: Potassium Chloride/Sodium Chloride (Normal Saline With 20 Meq Kcl) 1,000 mls @ 50 mls/hr IV ASDIRECTED [facility] Last Admin: 09/20/21 11:35 Dose: 75 mls/hr Documented by: Clindamycin Phosphate 300 mg/ (Premix) 50 mls @ 100 mls/hr IV Q6H [facility] Last Admin: 09/20/21 07:34 Dose: 100 mls/hr Documented by: Loperamide HCl (Loperamide 2 Mg Cap) 4 mg PO DAILY PRN PRN Reason: Diarrhea Methylprednisolone Sodium Succinate (Methylprednisolone Sodium Succinate 125 Mg/2 Ml Sdv) 125 mg IVPUSH Q12H [facility] Last Admin: 09/20/21 07:33 Dose: 125 mg Documented by: Morphine Sulfate (Morphine 2 Mg/Ml Syringe) 1 mg IVPUSH Q2H PRN PRN Reason: Pain Morphine Sulfate (Morphine 15 Mg Tab.Er) 15 mg PO BID PRN PRN Reason: Pain Non-Formulary Medication (Lenalidomide [Revlimid]) 20 mg PO DAILY [facility] Ondansetron HCl (Ondansetron 4 Mg/2 Ml Sdv) 4 mg IV Q4H PRN PRN Reason: Nausea/Vomiting Potassium Chloride (Potassium Chloride 10 Meq Tab.Er) 20 meq PO DAILY [facility] Last Admin: 09/20/21 11:49 Dose: 20 meq Documented by: Sodium Chloride (Sodium Chloride 0.9% 10 Ml Syringe) 10 ml FLUSH ASDIRECTED PRN PRN Reason: Keep Vein Open Trospium (Trospium 20 Mg Tab) 60 mg PO DAILY [facility] Verapamil HCl (Verapamil 240 Mg Tab.Er) 240 mg PO DAILY [facility] Last Admin: 09/20/21 12:10 Dose: 240 mg Documented by: Discontinued Medications Al Hydroxide/Mg Hydroxide (Gi Cocktail Oral Solution 30 Ml) 45 ml PO ONETIME ONE Stop: 09/19/21 04:37 Last Admin: 09/19/21 22:15 Dose: Not Given Documented by: Ceftriaxone Sodium (Ceftriaxone 1 Gm Vial) 1 gm IVPUSH Q24H [facility] Last Admin: 09/19/21 06:46 Dose: 1 gm Documented by: Al Hydroxide/Mg Hydroxide 30 (ml/ Lidocaine HCl 15 ml) 0 ml PO ONETIME ONE Stop: 09/19/21 04:42 Last Admin: 09/19/21 04:44 Dose: 45 ml Documented by: Furosemide (Furosemide 40 Mg/4 Ml Vial) 40 mg IVPUSH Q24H [facility] Last Admin: 09/19/21 11:35 Dose: 40 mg Documented by: Clindamycin Phosphate 300 mg/ (Premix) 50 mls @ 100 mls/hr IV Q6H [facility] Last Admin: 09/20/21 07:47 Dose: Not Given Documented by: Methylprednisolone Sodium Succinate (Methylprednisolone Sodium Succinate 125 Mg/2 Ml Sdv) 125 mg IVPUSH Q12H [facility] Last Admin: 09/20/21 07:47 Dose: Not Given Documented by: - Exam Quality Assessment: Supplemental Oxygen (weaned down to 3 liters per nasal cannula) Urinary Catheter Total Time: 0Days 21Hours General: Alert, Oriented HEENT: Other (mucous membranes dry) Neck: Supple Lungs: Decreased Breath Sounds Cardiovascular: Irregular Rhythm GI/Abdominal Exam: Normal Bowel Sounds, Soft, Non-Tender Extremities: Normal Inspection, Pedal Edema (1+) Skin: Warm, Dry Neurological: No New Focal Deficit - Patient Data Lab Results Last 24 hrs: Laboratory Results - last 24 hr 09/20/21 09/20/21 Range/Units 07:29 07:29 WBC 2.4 L (4.0-11.0) 10^3/uL RBC 3.54 L (4.00-5.50) x10^6/uL Hgb 8.6 L (12.0-16.0) g/dL Hct 27.7 L (37.0-47.0) % MCV 78.2 L (83.0-97.0) fL MCH 24.3 L (27.0-32.0) pg MCHC 31.0 L (32.0-36.0) g/dL RDW Coeff of John 19.6 H (11.0-15.0) % Plt Count 136 L (150-400) 10^3/uL Immature Gran % (Auto) 0.4 (0.0-4.9) % Neut % (Auto) 80.2 H (41-71) % Lymph % (Auto) 13.9 L (24-44) % [place] % (Auto) 5.1 (0-10) % Eos % (Auto) 0.0 (0-6) % Baso % (Auto) 0.4 (0-1) % Neut # (Auto) 1.90 (1.80-8.00) x10^3/uL Lymph # (Auto) 0.33 L (0.60-5.00) 10^3/uL [place] # (Auto) 0.12 (0.00-1.50) 10^3/uL Eos # (Auto) 0.00 (0.00-1.50) 10^3/uL Baso # (Auto) 0.01 (0.00-0.50) 10^3/uL Immature Gran # (Auto) 0.01 (0.00-0.49) 10^3/uL Sodium 146 H (136-145) mEq/L Potassium 3.3 L (3.5-5.0) mEq/L Chloride 110 H (98-106) mEq/L Carbon Dioxide 27 (21-32) mmol/L BUN 24 H (7-18) mg/dL Creatinine 0.8 (0.6-1.0) mg/dL Est Cr Clr Drug Dosing 36.93 mL/min Estimated GFR (MDRD) > 60 (>=60) mL/min Glucose 174 H (75-99) mg/dL Calcium 8.0 L (8.4-10.1) mg/dL C-Reactive Protein 23.7 H (0.2-0.8) mg/dL NT-Pro-B Natriuret Pep 4085 H (0-1000) pg/mL Result Diagrams: 09/20/21 07:29 09/20/21 07:29 Ghassan Results Last 24 hrs: Microbiology 09/20/21 10:24 Occult Blood - Preliminary Stool / Feces - Stool, Liquid Sepsis Event Note - Evaluation Sepsis Screening Result: No Definite Risk - Focused Exam Vital Signs: Vital Signs Temp Pulse Resp BP Pulse Ox 09/20/21 11:52 98.3 F 104 H 20 139/70 95 09/20/21 08:16 97 09/20/21 08:00 97.2 F 96 20 139/75 97 09/20/21 04:00 97.8 F 99 20 132/69 97 - Problem List & Annotations (1) Dysphagia SNOMED Code(s): 03404579, 187338208 Code(s): R13.10 - DYSPHAGIA, UNSPECIFIED Status: Acute Priority: High C urrent Visit: Yes (2) CHF (congestive heart failure) SNOMED Code(s): 43639691 Code(s): I50.9 - HEART FAILURE, UNSPECIFIED Status: Acute Priority: High Current Visit: Yes Qualifiers: Heart failure type: systolic Heart failure chronicity: acute on chronic Qualified Code(s): I50.23 - Acute on chronic systolic (congestive) heart failure - Problem List Review Problem List Initiated/Reviewed/Updated: Yes - My Orders Last 24 Hours: My Active Orders 09/20/21 08:00 Clindamycin Phosphate in D5W [Cleocin in D5W 300 MG/50 ML] 300 mg Premix Bag 1 bag IV Q6H Furosemide [Lasix] 40 mg IVPUSH BIDDIURETIC methylPREDNISolone Sod Succ [Solu-MEDROL] 125 mg IVPUSH Q12H 09/20/21 08:27 Chest 1V Frontal [CR] Routine 09/20/21 09:06 CULTURE SPUTUM + SMEAR [RM] Routine 09/20/21 10:24 OCCULT BLOOD SCREEN [OP] Routine 09/20/21 11:33 Loperamide [Imodium] 4 mg PO DAILY PRN Morphine [MS Contin] 15 mg PO BID PRN 09/20/21 11:45 Aspirin 325 mg PO DAILY Lenalidomide [Revlimid] 20 mg PO DAILY Potassium Chloride [Klor-Con 10] 20 meq PO DAILY Trospium [Sanctura] 60 mg PO DAILY Verapamil [Calan SR] 240 mg PO DAILY allopurinoL [Zyloprim] 300 mg PO DAILY 09/20/21 Lunch Clear Liquid Diet [DIET] 09/21/21 05:11 BASIC METABOLIC PANEL,BMP [CHEM] DAILY C-REACTIVE PROTEIN [CHEM] DAILY CBC WITH AUTO DIFF [HEME] DAILY 09/21/21 08:00 Ferrous Sulfate [Ferrous Sulfate] 325 mg PO DAILY 11/02/21 05:11 BASIC METABOLIC PANEL,BMP [CHEM] DAILY C-REACTIVE PROTEIN [CHEM] DAILY CBC WITH AUTO DIFF [HEME] DAILY - Assessment Assessment:: Dysphagia CHF - Plan Plan:: Yenifer admits to less pain in her throat. Taking ice chips without dysphagia. Oxygen weaned down to 3 1/2 liters by nasal cannula. Given jello, swallowed and tolerated well. Labs today show WBC 2.4, hemoglobin 8.4, down 1 gm. Sodium 146, potassium 3.3, creatinine 0.8, ProBNP 4085. Increase Lasix to 40 mg BID. Decrease IV fluids. Clear liquid diet, if tolerates, will advance diet and stop fluids. Continue IV antibiotics at this point, awaiting sputum results. Repeat labs in am.
[2021-09-20] MEDS: LENALIDOMIDE 20 MG PO SCH (14:13)
[2021-09-20] MEDS: TROSPIUM 60 MG PO SCH (14:13)
[2021-09-20] MEDS: Enoxaparin 40 MG/0.4 ML Syringe SUBCUT SCH (19:21)
[2021-09-21] MEDS: Clindamycin Phosphate in D5W 300 MG in Premix Bag 1 BAG IV SCH ×8 (02:45→19:18)
[2021-09-21] MEDS: Allopurinol 300 MG Tab PO SCH (07:51)
[2021-09-21] MEDS: Verapamil 240 MG Tab.ER PO SCH (07:51)
[2021-09-21] MEDS: Potassium Chloride 10 MEQ Tab.ER PO SCH (07:52)
[2021-09-21] MEDS: Aspirin 325 MG Tab PO SCH (07:52)
[2021-09-21] MEDS: methylPREDNISolone Sodium Succinate 125 MG/2 ML SDV IVPUSH SCH (07:53)
[2021-09-21] MEDS: Furosemide 40 MG/4 ML VIAL IVPUSH SCH (07:53)
[2021-09-21] MEDS: LENALIDOMIDE 20 MG PO SCH (07:56)
[2021-09-21] MEDS: TROSPIUM 60 MG PO SCH (07:56)
[2021-09-21] MEDS: Albuterol/Ipratropium 3.0-0.5 MG/3 ML Neb Soln NEB SCH ×4 (07:56→19:22)
[2021-09-21 07:57] LABS: CHLORIDE,CL 105 mEq/L (98-106); SODIUM,NA 142 mEq/L (136-145)
[2021-09-21] MEDS ORDERED: Ferrous Sulfate 324 MG Tab.EC PO SCH (08:00)
--- NOTE | 2021-09-21 09:16 | PCM.PN ---
- General Info Date of Service: 09/21/21 Admission Dx/Problem (Free Text): Dysphagia Subjective Update: Patient is feeling better today. Does feel throat is slightly better but "has settled down in to my chest". No fevers. Is weak. Has been NPO up to this point, tried ice chips this am and is doing well with these. Catheter draining clear urine. 09/21/2021 Patient states that she is feeling better today. Denies any pain to the throat and reports that her eating has improved. Denies any breathing difficulty. States that her legs are not as swollen. Denies chest or abdominal discomfort. - Review of Systems General: Reports: No Symptoms HEENT: Denies: Sore Throat Pulmonary: Reports: No Symptoms Cardiovascular: Reports: No Symptoms Gastrointestinal: Reports: No Symptoms Genitourinary: Reports: Other (Rogesr catheter) Musculoskeletal: Reports: No Symptoms Skin: Denies: Cyanosis Neurological: Denies: Dizziness, Headache, Syncope Psychiatric: Reports: No Symptoms - Patient Data Vitals - Most Recent: Last Vital Signs Temp 97.8 F 09/21/21 07:43 Pulse 78 09/21/21 07:43 Resp 20 09/21/21 07:43 BP 144/66 H 09/21/21 07:43 Pulse Ox 96 09/21/21 07:43 Weight - Most Recent: 123 lb 3.2 oz I&O - Last 24 Hours: Intake & Output 09/20/21 09/21/21 09/21/21 22:59 06:59 14:59 Intake Total 550 250 Output Total 550 500 Balance 0 -250 Lab Results Last 24 Hours: Laboratory Results - last 24 hr 09/21/21 09/21/21 Range/Units 07:17 07:17 WBC 3.3 L (4.0-11.0) 10^3/uL RBC 3.78 L (4.00-5.50) x10^6/uL Hgb 9.1 L (12.0-16.0) g/dL Hct 29.6 L (37.0-47.0) % MCV 78.3 L (83.0-97.0) fL MCH 24.1 L (27.0-32.0) pg MCHC 30.7 L (32.0-36.0) g/dL RDW Coeff of John 19.5 H (11.0-15.0) % Plt Count 198 (150-400) 10^3/uL Immature Gran % (Auto) 1.8 (0.0-4.9) % Neut % (Auto) 84.9 H (41-71) % Lymph % (Auto) 10.0 L (24-44) % Bureau % (Auto) 3.3 (0-10) % Eos % (Auto) 0.0 (0-6) % Baso % (Auto) 0.0 (0-1) % Neut # (Auto) 2.79 (1.80-8.00) x10^3/uL Lymph # (Auto) 0.33 L (0.60-5.00) 10^3/uL [place] # (Auto) 0.11 (0.00-1.50) 10^3/uL Eos # (Auto) 0.00 (0.00-1.50) 10^3/uL Baso # (Auto) 0.00 (0.00-0.50) 10^3/uL Immature Gran # (Auto) 0.06 (0.00-0.49) 10^3/uL Sodium 142 (136-145) mEq/L Potassium 3.5 (3.5-5.0) mEq/L Chloride 105 (98-106) mEq/L Carbon Dioxide 30 (21-32) mmol/L BUN 18 (7-18) mg/dL Creatinine 0.7 (0.6-1.0) mg/dL Est Cr Clr Drug Dosing 42.20 mL/min Estimated GFR (MDRD) > 60 (>=60) mL/min Glucose 184 H (75-99) mg/dL Calcium 8.3 L (8.4-10.1) mg/dL C-Reactive Protein 11.9 H (0.2-0.8) mg/dL Ghassan Results Last 24 Hours: Microbiology 09/20/21 09:06 Gram Stain - Final Sputum - Expectorated Sputum Culture - Preliminary Gram Negative Rods 09/20/21 10:24 Occult Blood - Preliminary Stool / Feces - Stool, Liquid Med Orders - Current: Current Medications Acetaminophen (Acetaminophen 325 Mg Tab) 650 mg PO Q4H PRN PRN Reason: Pain (Mild 1-3)/fever Albuterol/Ipratropium (Albuterol/Ipratropium 3.0-0.5 Mg/3 Ml Neb Soln) 3 ml NEB QIDRT [facility] Last Admin: 09/21/21 07:56 Dose: 3 ml Documented by: Allopurinol (Allopurinol 300 Mg Tab) 300 mg PO DAILY [facility] Last Admin: 09/21/21 07:51 Dose: 300 mg Documented by: Aspirin (Aspirin 325 Mg Tab) 325 mg PO DAILY [facility] Last Admin: 09/21/21 07:52 Dose: 325 mg Documented by: Enoxaparin Sodium (Enoxaparin 40 Mg/0.4 Ml Syringe) 40 mg SUBCUT Q24H [facility] Last Admin: 09/20/21 19:21 Dose: 40 mg Documented by: Ferrous Sulfate (Ferrous Sulfate 324 Mg Tab.Ec) 324 mg PO DAILY [facility] Last Admin: 09/21/21 07:52 Dose: 324 mg Documented by: Furosemide (Furosemide 40 Mg/4 Ml Vial) 40 mg IVPUSH Q24H [facility] Clindamycin Phosphate 300 mg/ (Premix) 50 mls @ 100 mls/hr IV Q6H [facility] Last Admin: 09/21/21 07:53 Dose: 100 mls/hr Documented by: Loperamide HCl (Loperamide 2 Mg Cap) 4 mg PO DAILY PRN PRN Reason: Diarrhea Methylprednisolone Sodium Succinate (Methylprednisolone Sodium Succinate 125 Mg/2 Ml Sdv) 125 mg IVPUSH Q24H [facility] Morphine Sulfate (Morphine 2 Mg/Ml Syringe) 1 mg IVPUSH Q2H PRN PRN Reason: Pain Morphine Sulfate (Morphine 15 Mg Tab.Er) 15 mg PO BID PRN PRN Reason: Pain Lenalidomide [ Revlimid] 20 Mg CapsuleOwn Med 20 mg PO DAILY [facility] Last Admin: 09/21/21 07:56 Dose: 20 mg Documented by: Trospium (Sanctura) Er 60mg CapOwn Med 1 each PO DAILY [facility] Last Admin: 09/21/21 07:56 Dose: 1 each Documented by: Ondansetron HCl (Ondansetron 4 Mg/2 Ml Sdv) 4 mg IV Q4H PRN PRN Reason: Nausea/Vomiting Potassium Chloride (Potassium Chloride 10 Meq Tab.Er) 20 meq PO DAILY [facility] Last Admin: 09/21/21 07:52 Dose: 20 meq Documented by: Sodium Chloride (Sodium Chloride 0.9% 10 Ml Syringe) 10 ml FLUSH ASDIRECTED PRN PRN Reason: Keep Vein Open Verapamil HCl (Verapamil 240 Mg Tab.Er) 240 mg PO DAILY [facility] Last Admin: 09/21/21 07:51 Dose: 240 mg Documented by: Discontinued Medications Al Hydroxide/Mg Hydroxide (Gi Cocktail Oral Solution 30 Ml) 45 ml PO ONETIME ONE Stop: 09/19/21 04:37 Last Admin: 09/19/21 22:15 Dose: Not Given Documented by: Ceftriaxone Sodium (Ceftriaxone 1 Gm Vial) 1 gm IVPUSH Q24H [facility] Last Admin: 09/19/21 06:46 Dose: 1 gm Documented by: Al Hydroxide/Mg Hydroxide 30 (ml/ Lidocaine HCl 15 ml) 0 ml PO ONETIME ONE Stop: 09/19/21 04:42 Last Admin: 09/19/21 04:44 Dose: 45 ml Documented by: Furosemide (Furosemide 40 Mg/4 Ml Vial) 40 mg IVPUSH Q24H [facility] Last Admin: 09/19/21 11:35 Dose: 40 mg Documented by: Furosemide (Furosemide 40 Mg/4 Ml Vial) 40 mg IVPUSH BIDDIURETIC [facility] Last Admin: 09/21/21 07:53 Dose: 40 mg Documented by: Potassium Chloride/Sodium Chloride (Normal Saline With 20 Meq Kcl) 1,000 mls @ 50 mls/hr IV ASDIRECTED [facility] Last Admin: 09/20/21 11:35 Dose: 75 mls/hr Documented by: Clindamycin Phosphate 300 mg/ (Premix) 50 mls @ 100 mls/hr IV Q6H [facility] Last Admin: 09/20/21 07:47 Dose: Not Given Documented by: Methylprednisolone Sodium Succinate (Methylprednisolone Sodium Succinate 125 Mg/2 Ml Sdv) 125 mg IVPUSH Q12H [facility] Last Admin: 09/20/21 07:47 Dose: Not Given Documented by: Methylprednisolone Sodium Succinate (Methylprednisolone Sodium Succinate 125 Mg/2 Ml Sdv) 125 mg IVPUSH Q12H [facility] Last Admin: 09/21/21 07:53 Dose: 125 mg Documented by: - Exam Quality Assessment: Supplemental Oxygen Urinary Catheter Total Time: 1Days 21Hours General: Alert, Oriented, Cooperative, No Acute Distress HEENT: Mucous Membr. Moist/[place] Neck: Supple, Trachea Midline, No JVD, No Thyromegaly Lungs: Clear to Auscultation, Decreased Breath Sounds (decreased bilateral bases) Cardiovascular: Regular Rate, Regular Rhythm GI/Abdominal Exam: Normal Bowel Sounds, Soft, Non-Tender Extremities: No Pedal Edema Skin: Warm, Dry, Intact Neurological: No New Focal Deficit Psy/Mental Status: Alert, Normal Affect, Normal Mood - Patient Data Lab Results Last 24 hrs: Laboratory Results - last 24 hr 09/21/21 09/21/21 Range/Units 07:17 07:17 WBC 3.3 L (4.0-11.0) 10^3/uL RBC 3.78 L (4.00-5.50) x10^6/uL Hgb 9.1 L (12.0-16.0) g/dL Hct 29.6 L (37.0-47.0) % MCV 78.3 L (83.0-97.0) fL MCH 24.1 L (27.0-32.0) pg MCHC 30.7 L (32.0-36.0) g/dL RDW Coeff of John 19.5 H (11.0-15.0) % Plt Count 198 (150-400) 10^3/uL Immature Gran % (Auto) 1.8 (0.0-4.9) % Neut % (Auto) 84.9 H (41-71) % Lymph % (Auto) 10.0 L (24-44) % Bureau % (Auto) 3.3 (0-10) % Eos % (Auto) 0.0 (0-6) % Baso % (Auto) 0.0 (0-1) % Neut # (Auto) 2.79 (1.80-8.00) x10^3/uL Lymph # (Auto) 0.33 L (0.60-5.00) 10^3/uL Bureau # (Auto) 0.11 (0.00-1.50) 10^3/uL Eos # (Auto) 0.00 (0.00-1.50) 10^3/uL Baso # (Auto) 0.00 (0.00-0.50) 10^3/uL Immature Gran # (Auto) 0.06 (0.00-0.49) 10^3/uL Sodium 142 (136-145) mEq/L Potassium 3.5 (3.5-5.0) mEq/L Chloride 105 (98-106) mEq/L Carbon Dioxide 30 (21-32) mmol/L BUN 18 (7-18) mg/dL Creatinine 0.7 (0.6-1.0) mg/dL Est Cr Clr Drug Dosing 42.20 mL/min Estimated GFR (MDRD) > 60 (>=60) mL/min Glucose 184 H (75-99) mg/dL Calcium 8.3 L (8.4-10.1) mg/dL C-Reactive Protein 11.9 H (0.2-0.8) mg/dL Result Diagrams: 09/21/21 07:17 09/21/21 07:17 Ghassan Results Last 24 hrs: Microbiology 09/20/21 09:06 Gram Stain - Final Sputum - Expectorated Sputum Culture - Preliminary Gram Negative Rods 09/20/21 10:24 Occult Blood - Preliminary Stool / Feces - Stool, Liquid Sepsis Event Note - Evaluation Sepsis Screening Result: No Definite Risk - Focused Exam Vital Signs: Vital Signs Temp Pulse Resp BP Pulse Ox 09/21/21 07:43 97.8 F 78 20 144/66 H 96 09/21/21 04:00 97.3 F 99 20 119/71 96 09/20/21 23:59 98.2 F 98 20 128/74 96 - Problem List & Annotations (1) Aspiration pneumonia SNOMED Code(s): 877403583 Code(s): J69.0 - PNEUMONITIS DUE TO INHALATION OF FOOD AND VOMIT Status: Acute Current Visit: Yes Qualifiers: Aspiration pneumonia type: unspecified Laterality: bilateral Lung location: lower lobe of lung Qualified Code(s): J69.0 - Pneumonitis due to inhalation of food and vomit (2) CHF (congestive heart failure) SNOMED Code(s): 73046062 Code(s): I50.9 - HEART FAILURE, UNSPECIFIED Status: Acute Priority: High Current Visit: Yes Qualifiers: Heart failure type: systolic Heart failure chronicity: acute on chronic Qualified Code(s): I50.23 - Acute on chronic systolic (congestive) heart failure (3) Dysphagia SNOMED Code(s): 47237331, 563360373 Code(s): R13.10 - DYSPHAGIA, UNSPECIFIED Status: Resolved Priority: High Current Visit: Yes Qualifiers: Dysphagia type: unspecified Qualified Code(s): R13.10 - Dysphagia, unspecified - Problem List Review Problem List Initiated/Reviewed/Updated: Yes - My Orders Last 24 Hours: My Active Orders 09/22/21 08:00 PRO B-TYPE NATRIUR PEPT,BNPPRO [CHEM] Routine Furosemide [Lasix] 40 mg IVPUSH Q24H methylPREDNISolone Sod Succ [Solu-MEDROL] 125 mg IVPUSH Q24H - Assessment Assessment:: Dysphagia CHF Aspiration pneumonia - Plan Plan:: 09/20/2021 Yenifer admits to less pain in her throat. Taking ice chips without dysphagia. Oxygen weaned down to 3 1/2 liters by nasal cannula. Given jello, swallowed and tolerated well. Labs today show WBC 2.4, hemoglobin 8.4, down 1 gm. Sodium 146, potassium 3.3, creatinine 0.8, ProBNP 4085. Increase Lasix to 40 mg BID. Decrease IV fluids. Clear liquid diet, if tolerates, will advance diet and stop fluids. Continue IV antibiotics at this point, awaiting sputum results. Repeat labs in am. 09/21/2021 Patient sore throat has resolved and advanced to regular diet and tolerated eating breakfast without complications. Oxygen at 2 LPM via NC. Discontinue the rogers catheter. Ambulate with assistance and PT to evaluate today. Methylprednisolone decreased to 125 mg daily. Continue clindamycin for aspiration pneumonia and sputum culture reporting gram positive cocci. Decreased lasix to one time per day.
[2021-09-21] MEDS: Enoxaparin 40 MG/0.4 ML Syringe SUBCUT SCH (19:22)
[2021-09-22] MEDS: Clindamycin Phosphate in D5W 300 MG in Premix Bag 1 BAG IV SCH ×2 (01:10)
[2021-09-22 07:31] LABS: CHLORIDE,CL 105 mEq/L (98-106); SODIUM,NA 143 mEq/L (136-145)
[2021-09-22] MEDS ORDERED: methylPREDNISolone Sodium Succinate 125 MG/2 ML SDV IVPUSH SCH (08:00)
[2021-09-22] MEDS ORDERED: Furosemide 40 MG/4 ML VIAL IVPUSH SCH (08:00)
--- NOTE | 2021-09-22 08:10 | PCM.DCSUM1 ---
Discharge Summary - Hospital Course Brief History: Yenifer is an 86 yo female who was admitted to the hospital over the weekend with dysphagia. Ended up having aspiration pneumonia with CHF exacerbation. Has been on IV antibiotics and IV Lasix. Diagnosis: Stroke: No - Discharge Data Discharge Date: 09/22/21 Discharge Disposition: DC/Tfer W/I Hosp To Swing 61 Condition: Stable - Referral to Home Health Primary Care Physician: Sondra Boland PA-C - Discharge Diagnosis/Problem(s) (1) Aspiration pneumonia SNOMED Code(s): 047792500 ICD Code: J69.0 - PNEUMONITIS DUE TO INHALATION OF FOOD AND VOMIT Status: Acute Current Visit: Yes Qualifiers: Aspiration pneumonia type: unspecified Laterality: bilateral Lung location: lower lobe of lung Qualified Code(s): J69.0 - Pneumonitis due to inhalation of food and vomit (2) CHF (congestive heart failure) SNOMED Code(s): 54160317 ICD Code: I50.9 - HEART FAILURE, UNSPECIFIED Status: Acute Priority: High Current Visit: Yes Qualifiers: Heart failure type: systolic Heart failure chronicity: acute on chronic Qualified Code(s): I50.23 - Acute on chronic systolic (congestive) heart failure (3) Dysphagia SNOMED Code(s): 68310451, 272495181 ICD Code: R13.10 - DYSPHAGIA, UNSPECIFIED Status: Resolved Priority: High Current Visit: Yes Qualifiers: Dysphagia type: unspecified Qualified Code(s): R13.10 - Dysphagia, unspecified - Patient Summary/Data Consults: Consultations 09/21/21 08:00 Consult to Physical Therapy [PT Evaluation and Treatment] [CONS] Routine - Discharge Plan *PRESCRIPTION DRUG MONITORING PROGRAM REVIEWED*: No *COPY OF PRESCRIPTION DRUG MONITORING REPORT IN PATIENT BOSSMAN: No Home Medications: Home Meds Furosemide [Lasix] 40 mg PO DAILY 03/27/14 [History] Verapamil [Verelan] 240 mg PO DAILY 03/27/14 [History] Morphine [MS Contin] 15 mg PO BID PRN 03/01/17 [History] Allopurinol [Zyloprim] 300 mg PO DAILY 09/19/21 [History] Aspirin 325 mg PO DAILY 09/19/21 [History] Cholecalciferol (Vitamin D3) [Vitamin D3] 25 mcg PO DAILY 09/19/21 [History] Ferrous Sulfate 325 mg PO DAILY 09/19/21 [History] Lenalidomide [Revlimid] 20 mg PO DAILY 09/19/21 [History] Loperamide [Imodium] 4 mg PO DAILY PRN 09/19/21 [History] Potassium Chloride 10 meq PO DAILY 09/19/21 [History] Trospium [Sanctura] 60 mg PO DAILY 09/19/21 [History] Forms: ED Department Discharge - Discharge Summary/Plan Comment DC Time >30 min.: Yes Total # of Minutes for Discharge Time: 40 minutes Discharge Summary/Plan Comment: Patient will be discharged to swing bed care at this time. Patient has shown significant improvement. She has been weaned off of oxygen therapy. Will continue IV antibiotics and physical therapy to continue working with strengthening and ambulating. Patient hasn't been able to ambulate on her own and will transition to ambulation with walker before planning on discharge. Please use discharge summary for Swing Bed H&P. - General Info Date of Service: 09/22/21 Admission Dx/Problem (Free Text: Dysphagia Subjective Update: Patient is feeling better today. Does feel throat is slightly better but "has settled down in to my chest". No fevers. Is weak. Has been NPO up to this point, tried ice chips this am and is doing well with these. Catheter draining clear urine. 09/21/2021 Patient states that she is feeling better today. Denies any pain to the throat and reports that her eating has improved. Denies any breathing difficulty. States that her legs are not as swollen. Denies chest or abdominal discomfort. 10/21/2021 Yenifer states she continues to feel better everyday. She admits she is home sick and would like to go home. However, she does state she is unable to ambulate on her own and still is a little shaky with assistance. Feels physical therapy is helping her. She denies any further throat discomfort. Overall significantly improved. - Review of Systems General: Reports: Fatigue. Denies: Fever, Appetite HEENT: Reports: Headaches. Denies: Dysphasia Pulmonary: Reports: Shortness of Breath Cardiovascular: Reports: No Symptoms. Denies: Chest Pain, Palpitations, Lightheadedness Gastrointestinal: Reports: No Symptoms. Denies: Abdominal Pain, Constipation, Diarrhea Genitourinary: Reports: No Symptoms Musculoskeletal: Reports: No Symptoms Skin: Reports: No Symptoms Neurological: Reports: Headache. Denies: Confusion, Dizziness, Pre-Existing Deficit Psychiatric: Reports: No Symptoms - Patient Data Vitals - Most Recent: Last Vital Signs Temp 97.8 F 09/22/21 07:46 Pulse 73 09/22/21 07:46 Resp 18 09/22/21 07:46 BP 129/69 09/22/21 07:46 Pulse Ox 98 09/22/21 07:46 Weight - Most Recent: 123 lb 3.2 oz I&O - Last 24 hours: Intake & Output 09/21/21 09/22/21 09/22/21 22:59 06:59 14:59 Intake Total 650 200 Output Total 1100 Balance -450 200 Lab Results - Last 24 hrs: Laboratory Results - last 24 hr 09/21/21 09/22/21 09/22/21 Range/Units 07:17 07:10 07:10 WBC 2.7 L (4.0-11.0) 10^3/uL RBC 3.42 L (4.00-5.50) x10^6/uL Hgb 8.3 L (12.0-16.0) g/dL Hct 26.8 L (37.0-47.0) % MCV 78.4 L (83.0-97.0) fL MCH 24.3 L (27.0-32.0) pg MCHC 31.0 L (32.0-36.0) g/dL RDW Coeff of John 19.2 H (11.0-15.0) % Plt Count 158 (150-400) 10^3/uL Immature Gran % (Auto) 1.1 (0.0-4.9) % Neut % (Auto) 82.7 H (41-71) % Lymph % (Auto) 11.4 L (24-44) % [place] % (Auto) 4.4 (0-10) % Eos % (Auto) 0.4 (0-6) % Baso % (Auto) 0.0 (0-1) % Neut # (Auto) 2.26 (1.80-8.00) x10^3/uL Lymph # (Auto) 0.31 L (0.60-5.00) 10^3/uL [place] # (Auto) 0.12 (0.00-1.50) 10^3/uL Eos # (Auto) 0.01 (0.00-1.50) 10^3/uL Baso # (Auto) 0.00 (0.00-0.50) 10^3/uL Immature Gran # (Auto) 0.03 (0.00-0.49) 10^3/uL Sodium 142 143 (136-145) mEq/L Potassium 3.5 3.3 L (3.5-5.0) mEq/L Chloride 105 105 (98-106) mEq/L Carbon Dioxide 30 30 (21-32) mmol/L BUN 18 17 (7-18) mg/dL Creatinine 0.7 0.7 (0.6-1.0) mg/dL Est Cr Clr Drug Dosing 42.20 42.20 mL/min Estimated GFR (MDRD) > 60 > 60 (>=60) mL/min Glucose 184 H 141 H (75-99) mg/dL Calcium 8.3 L 8.4 (8.4-10.1) mg/dL C-Reactive Protein 11.9 H 4.2 H (0.2-0.8) mg/dL NT-Pro-B Natriuret Pep 2943 H (0-1000) pg/mL ASHA Results - Last 24 hrs: Microbiology 09/20/21 10:24 Occult Blood - Final Stool / Feces - Stool, Liquid 09/20/21 09:06 Gram Stain - Final Sputum - Expectorated Sputum Culture - Preliminary Med Orders - Current: Current Medications Acetaminophen (Acetaminophen 325 Mg Tab) 650 mg PO Q4H PRN PRN Reason: Pain (Mild 1-3)/fever Albuterol/Ipratropium (Albuterol/Ipratropium 3.0-0.5 Mg/3 Ml Neb Soln) 3 ml NEB QIDRT [facility] Last Admin: 09/21/21 19:22 Dose: 3 ml Documented by: Allopurinol (Allopurinol 300 Mg Tab) 300 mg PO DAILY [facility] Last Admin: 09/21/21 07:51 Dose: 300 mg Documented by: Aspirin (Aspirin 325 Mg Tab) 325 mg PO DAILY [facility] Last Admin: 09/21/21 07:52 Dose: 325 mg Documented by: Enoxaparin Sodium (Enoxaparin 40 Mg/0.4 Ml Syringe) 40 mg SUBCUT Q24H [facility] Last Admin: 09/21/21 19:22 Dose: 40 mg Documented by: Ferrous Sulfate (Ferrous Sulfate 324 Mg Tab.Ec) 324 mg PO DAILY [facility] Last Admin: 09/21/21 07:52 Dose: 324 mg Documented by: Furosemide (Furosemide 40 Mg/4 Ml Vial) 40 mg IVPUSH Q24H [facility] Clindamycin Phosphate 300 mg/ (Premix) 50 mls @ 100 mls/hr IV Q6H [facility] Last Admin: 09/22/21 01:10 Dose: 100 mls/hr Documented by: Loperamide HCl (Loperamide 2 Mg Cap) 4 mg PO DAILY PRN PRN Reason: Diarrhea Methylprednisolone Sodium Succinate (Methylprednisolone Sodium Succinate 125 Mg/2 Ml Sdv) 125 mg IVPUSH Q24H [facility] Morphine Sulfate (Morphine 2 Mg/Ml Syringe) 1 mg IVPUSH Q2H PRN PRN Reason: Pain Morphine Sulfate (Morphine 15 Mg Tab.Er) 15 mg PO BID PRN PRN Reason: Pain Lenalidomide [ Revlimid] 20 Mg CapsuleOwn Med 20 mg PO DAILY [facility] Last Admin: 09/21/21 07:56 Dose: 20 mg Documented by: Trospium (Sanctura) Er 60mg CapOwn Med 1 each PO DAILY [facility] Last Admin: 09/21/21 07:56 Dose: 1 each Documented by: Ondansetron HCl (Ondansetron 4 Mg/2 Ml Sdv) 4 mg IV Q4H PRN PRN Reason: Nausea/Vomiting Potassium Chloride (Potassium Chloride 10 Meq Tab.Er) 20 meq PO DAILY [facility] Last Admin: 09/21/21 07:52 Dose: 20 meq Documented by: Sodium Chloride (Sodium Chloride 0.9% 10 Ml Syringe) 10 ml FLUSH ASDIRECTED PRN PRN Reason: Keep Vein Open Verapamil HCl (Verapamil 240 Mg Tab.Er) 240 mg PO DAILY [facility] Last Admin: 09/21/21 07:51 Dose: 240 mg Documented by: Discontinued Medications Al Hydroxide/Mg Hydroxide (Gi Cocktail Oral Solution 30 Ml) 45 ml PO ONETIME ONE Stop: 09/19/21 04:37 Last Admin: 09/19/21 22:15 Dose: Not Given Documented by: Ceftriaxone Sodium (Ceftriaxone 1 Gm Vial) 1 gm IVPUSH Q24H [facility] Last Admin: 09/19/21 06:46 Dose: 1 gm Documented by: Al Hydroxide/Mg Hydroxide 30 (ml/ Lidocaine HCl 15 ml) 0 ml PO ONETIME ONE Stop: 09/19/21 04:42 Last Admin: 09/19/21 04:44 Dose: 45 ml Documented by: Furosemide (Furosemide 40 Mg/4 Ml Vial) 40 mg IVPUSH Q24H [facility] Last Admin: 09/19/21 11:35 Dose: 40 mg Documented by: Furosemide (Furosemide 40 Mg/4 Ml Vial) 40 mg IVPUSH BIDDIURETIC [facility] Last Admin: 09/21/21 07:53 Dose: 40 mg Documented by: Potassium Chloride/Sodium Chloride (Normal Saline With 20 Meq Kcl) 1,000 mls @ 50 mls/hr IV ASDIRECTED [facility] Last Admin: 09/20/21 11:35 Dose: 75 mls/hr Documented by: Clindamycin Phosphate 300 mg/ (Premix) 50 mls @ 100 mls/hr IV Q6H [facility] Last Admin: 09/20/21 07:47 Dose: Not Given Documented by: Methylprednisolone Sodium Succinate (Methylprednisolone Sodium Succinate 125 Mg/2 Ml Sdv) 125 mg IVPUSH Q12H [facility] Last Admin: 09/20/21 07:47 Dose: Not Given Documented by: Methylprednisolone Sodium Succinate (Methylprednisolone Sodium Succinate 125 Mg/2 Ml Sdv) 125 mg IVPUSH Q12H [facility] Last Admin: 09/21/21 07:53 Dose: 125 mg Documented by: - Exam General: Reports: Alert, Oriented, Cooperative, No Acute Distress Neck: Reports: Supple Lungs: Reports: Normal Respiratory Effort, Decreased Breath Sounds. Denies: Rales, Rhonchi, Wheezing Cardiovascular: Reports: Regular Rate, Irregular Rhythm GI/Abdominal Exam: Normal Bowel Sounds, Soft, Non-Tender, No Organomegaly, No Distention, No Mass Extremities: Normal Inspection, No Pedal Edema Skin: Reports: Warm, Dry, Intact Neurological: Reports: No New Focal Deficit Psy/Mental Status: Reports: Alert, Normal Affect, Normal Mood
== END 2021-09-22 08:07 | disposition swing bed (61) | DRG 177 ==
LOC: CC.ED 03:50 → CC.MS 05:26 → OBSVTOIN 10:46
PROVIDERS: ADMIT Physician Assistant Medical; ATTEND Physician Assistant Medical
DX: J69.0 Pneumonitis due to inhalation of food and vomit (principal); I50.9 Heart failure, unspecified; I50.23 Acute on chronic systolic (congestive) heart failure; I10 Essential (primary) hypertension; D69.3 Immune thrombocytopenic purpura; R13.10 Dysphagia, unspecified; E78.00 Pure hypercholesterolemia, unspecified; I11.0 Hypertensive heart disease with heart failure; F32.9 Major depressive disorder, single episode, unspecified; K21.9 Gastro-esophageal reflux disease without esophagitis; R32 Unspecified urinary incontinence; C85.90 Non-Hodgkin lymphoma, unspecified, unspecified site; M19.90 Unspecified osteoarthritis, unspecified site; M81.0 Age-related osteoporosis without current pathological fracture; F41.9 Anxiety disorder, unspecified; F32.A Depression, unspecified; D64.9 Anemia, unspecified; Z96.659 Presence of unspecified artificial knee joint; Z85.72 Personal history of non-Hodgkin lymphomas; Z79.899 Other long term (current) drug therapy; Z79.82 Long term (current) use of aspirin; Z90.49 Acquired absence of other specified parts of digestive tract; Z90.710 Acquired absence of both cervix and uterus; Z98.51 Tubal ligation status; Z20.822 Contact with and (suspected) exposure to COVID-19
CPT/HCPCS: 36415; 51702; 71045; 80048; 80053; 82270; 83735; 83880; 85025; 86140; 87070; 87077; 87205; 87430; 94640; 97110-GP; 97161-GP; 99285-25; A9270-GY; J0696; J1650; J1940; J2930; J3480; J3490; J7620-GY; U0002

== ENCOUNTER 2021-09-22 08:14 | Inpatient (IN) | payer MEDICARE, OTHER ==
[2021-09-22] MEDS ORDERED: Morphine 15 MG Tab.ER PO PRN (08:20)
[2021-09-22] MEDS ORDERED: Ondansetron 4 MG/2 ML SDV IV PRN (08:20)
[2021-09-22] MEDS ORDERED: Acetaminophen 325 MG Tab PO PRN (08:20)
[2021-09-22] MEDS ORDERED: Sodium Chloride 0.9% 10 ML Syringe FLUSH PRN ×2 (08:20)
[2021-09-22] MEDS ORDERED: Loperamide 2 MG Cap PO PRN (08:20)
[2021-09-22] MEDS ORDERED: Trospium 20 MG Tab PO SCH (09:00)
[2021-09-22] MEDS: Clindamycin Phosphate in D5W 300 MG in Premix Bag 1 BAG IV SCH ×6 (09:01→19:34)
[2021-09-22] MEDS: Furosemide 40 MG Tab PO SCH (09:06)
[2021-09-22] MEDS: Ferrous Sulfate 324 MG Tab.EC PO SCH ×2 (09:06→17:18)
[2021-09-22] MEDS: Allopurinol 300 MG Tab PO SCH (09:06)
[2021-09-22] MEDS: Albuterol/Ipratropium 3.0-0.5 MG/3 ML Neb Soln NEB SCH ×4 (09:07→19:39)
[2021-09-22] MEDS: Verapamil 240 MG Tab.ER PO SCH (09:07)
[2021-09-22] MEDS: Aspirin 325 MG Tab PO SCH (09:07)
[2021-09-22] MEDS: Potassium Chloride 10 MEQ Tab.ER PO SCH (09:07)
[2021-09-22] MEDS: LENALIDOMIDE 20 MG PO SCH (09:08)
[2021-09-22] MEDS: TROSPIUM 60 MG PO SCH (09:09)
[2021-09-22] MEDS: Enoxaparin 40 MG/0.4 ML Syringe SUBCUT SCH (19:32)
[2021-09-23] MEDS: Clindamycin Phosphate in D5W 300 MG in Premix Bag 1 BAG IV SCH ×8 (02:00→20:14)
[2021-09-23] MEDS: Ferrous Sulfate 324 MG Tab.EC PO SCH ×2 (07:39→16:32)
[2021-09-23] MEDS: Albuterol/Ipratropium 3.0-0.5 MG/3 ML Neb Soln NEB SCH ×4 (07:39→19:57)
[2021-09-23] MEDS: Aspirin 325 MG Tab PO SCH (07:40)
[2021-09-23] MEDS: Verapamil 240 MG Tab.ER PO SCH (07:40)
[2021-09-23] MEDS: Furosemide 40 MG Tab PO SCH (07:40)
[2021-09-23] MEDS: Potassium Chloride 10 MEQ Tab.ER PO SCH (07:40)
[2021-09-23] MEDS: Allopurinol 300 MG Tab PO SCH (07:40)
[2021-09-23] MEDS: TROSPIUM 60 MG PO SCH (07:41)
[2021-09-23] MEDS: LENALIDOMIDE 20 MG PO SCH (07:41)
[2021-09-23] MEDS ORDERED: Ferrous Sulfate 324 MG Tab.EC PO SCH (08:00)
[2021-09-23 08:06] LABS: CHLORIDE,CL 105 mEq/L (98-106); SODIUM,NA 140 mEq/L (136-145)
[2021-09-23] MEDS: Enoxaparin 40 MG/0.4 ML Syringe SUBCUT SCH (19:56)
[2021-09-24] MEDS: Clindamycin Phosphate in D5W 300 MG in Premix Bag 1 BAG IV SCH ×4 (01:31→07:48)
[2021-09-24] MEDS: Verapamil 240 MG Tab.ER PO SCH (07:47)
[2021-09-24] MEDS: Allopurinol 300 MG Tab PO SCH (07:47)
[2021-09-24] MEDS: Albuterol/Ipratropium 3.0-0.5 MG/3 ML Neb Soln NEB SCH (07:47)
[2021-09-24] MEDS: Potassium Chloride 10 MEQ Tab.ER PO SCH (07:47)
[2021-09-24] MEDS: Aspirin 325 MG Tab PO SCH (07:48)
[2021-09-24] MEDS: Furosemide 40 MG Tab PO SCH (07:48)
[2021-09-24] MEDS: Ferrous Sulfate 324 MG Tab.EC PO SCH (07:49)
[2021-09-24] MEDS: LENALIDOMIDE 20 MG PO SCH (07:53)
[2021-09-24] MEDS: TROSPIUM 60 MG PO SCH (07:53)
--- NOTE | 2021-09-24 08:36 | PCM.DCSUM1 ---
Discharge Summary - Hospital Course Brief History: Yenifer is an 86 yo female who was admitted to the hospital over the weekend with dysphagia. Ended up having aspiration pneumonia with CHF exacerbation. Has been on IV antibiotics and IV Lasix. - Discharge Data Discharge Date: 09/24/21 Discharge Disposition: Home, W Home Health Agency 06 Condition: Fair - Referral to Home Health Date of Face to Face Encounter: 09/24/21 Reason for Homebound Status: Inability to drive due to weakness. Primary Care Physician: Sondra Boland PA-C Skilled Need: Nursing to monitor medication changes, assist with ADL's. Physical therapy for strengthening. - Discharge Diagnosis/Problem(s) (1) Aspiration pneumonia SNOMED Code(s): 879842065 ICD Code: J69.0 - PNEUMONITIS DUE TO INHALATION OF FOOD AND VOMIT Status: Acute Current Visit: No Qualifiers: Aspiration pneumonia type: unspecified Laterality: bilateral Lung locatio n: lower lobe of lung Qualified Code(s): J69.0 - Pneumonitis due to inhalation of food and vomit (2) CHF (congestive heart failure) SNOMED Code(s): 86093601 ICD Code: I50.9 - HEART FAILURE, UNSPECIFIED Status: Chronic Priority: High Current Visit: No Qualifiers: Heart failure type: systolic Heart failure chronicity: acute on chronic Q ualified Code(s): I50.23 - Acute on chronic systolic (congestive) heart failure (3) Dysphagia SNOMED Code(s): 76860040, 065281602 ICD Code: R13.10 - DYSPHAGIA, UNSPECIFIED Status: Resolved Priority: High Current Visit: No Qualifiers: Dysphagia type: unspecified Qualified Code(s): R13.10 - Dysphagia, unspecified - Patient Summary/Data Consults: Consultations 09/22/21 08:20 Consult to Physical Therapy [PT Evaluation and Treatment] [CONS] Routine - Patient Instructions Diet: Heart Healthy Diet Activity: As Tolerated (with walker) Driving: Do Not Drive Notify Provider of: Fever - Discharge Plan *PRESCRIPTION DRUG MONITORING PROGRAM REVIEWED*: Not Applicable *COPY OF PRESCRIPTION DRUG MONITORING REPORT IN PATIENT BOSSMAN: Not Applicable Prescriptions/Med Rec: Clindamycin HCl 300 mg PO QID #32 capsule Albuterol/Ipratropium [DuoNeb 3.0-0.5 MG/3 ML] 3 ml NEB QIDRT #30 neb Home Medications: Home Meds Furosemide [Lasix] 40 mg PO DAILY 03/27/14 [History] Verapamil [Verelan] 240 mg PO DAILY 03/27/14 [History] Morphine [MS Contin] 15 mg PO BID PRN 03/01/17 [History] Allopurinol [Zyloprim] 300 mg PO DAILY 09/19/21 [History] Aspirin 325 mg PO DAILY 09/19/21 [History] Cholecalciferol (Vitamin D3) [Vitamin D3] 25 mcg PO DAILY 09/19/21 [History] Ferrous Sulfate 325 mg PO DAILY 09/19/21 [History] Lenalidomide [Revlimid] 20 mg PO DAILY 09/19/21 [History] Loperamide [Imodium] 4 mg PO DAILY PRN 09/19/21 [History] Potassium Chloride 10 meq PO DAILY 09/19/21 [History] Trospium [Sanctura] 60 mg PO DAILY 09/19/21 [History] Albuterol/Ipratropium [DuoNeb 3.0-0.5 MG/3 ML] 3 ml NEB QIDRT #30 neb 09/24/21 [Rx] Clindamycin HCl 300 mg PO QID #32 capsule 09/24/21 [Rx] Oxygen Therapy Mode: Room Air Referrals: Sondra Boland PA-C [Primary Care Provider] - (1 week, labs prior) - Discharge Summary/Plan Comment DC Time >30 min.: Yes Total # of Minutes for Discharge Time: 40 minutes Discharge Summary/Plan Comment: Plan to discharge patient home today with home health. Patient is unable to drive and will need assistance with medication changes and physical therapy for ongoing strengthening. Patient will be sent home with Clindamycin 300mg QID for 8 days. Discussed ambulation with walker, which we will send home with patient today. Patient is to follow up with Sondra Boland PA-C in 1 week. No further sore throat at this time. Edema significantly improved to lower extremities. - General Info Date of Service: 09/24/21 Subjective Update: Yenifer is overall feeling better. She has no further sore throat or difficulty with swallowing. Patient has been ambulatory and walking with a walker. Physical therapy feels patient is ready for discharge as well. She denies any complaints at this time. Functional Status: Reports: Tolerating Diet, Ambulating, Urinating. Denies: New Symptoms - Review of Systems General: Denies: Fever, Appetite HEENT: Reports: No Symptoms Pulmonary: Denies: Shortness of Breath, Sputum, Wheezing Cardiovascular: Denies: Chest Pain, Palpitations, Dyspnea on Exertion Gastrointestinal: Reports: No Symptoms Genitourinary: Reports: No Symptoms Musculoskeletal: Reports: No Symptoms Skin: Reports: No Symptoms Neurological: Reports: No Symptoms Psychiatric: Reports: No Symptoms - Patient Data Vitals - Most Recent: Last Vital Signs Temp 98 F 09/24/21 08:00 Pulse 83 09/24/21 08:00 Resp 18 09/24/21 08:00 BP 142/62 H 09/24/21 08:00 Pulse Ox 93 L 09/24/21 08:00 Weight - Most Recent: 124 lb 3.2 oz I&O - Last 24 hours: Intake & Output 09/23/21 09/24/21 09/24/21 22:59 06:59 14:59 Intake Total 50 50 Balance 50 50 Lab Results - Last 24 hrs: Laboratory Results - last 24 hr 09/23/21 Range/Units 08:00 WBC 2.6 L (4.0-11.0) 10^3/uL RBC 3.63 L (4.00-5.50) x10^6/uL Hgb 8.8 L (12.0-16.0) g/dL Hct 28.6 L (37.0-47.0) % MCV 78.8 L (83.0-97.0) fL MCH 24.2 L (27.0-32.0) pg MCHC 30.8 L (32.0-36.0) g/dL RDW Coeff of John 19.3 H (11.0-15.0) % Plt Count 173 (150-400) 10^3/uL Immature Gran % (Auto) 3.1 (0.0-4.9) % Neut % (Auto) 78.0 H (41-71) % Lymph % (Auto) 13.5 L (24-44) % [place] % (Auto) 2.7 (0-10) % Eos % (Auto) 2.7 (0-6) % Baso % (Auto) 0.0 (0-1) % Neut # (Auto) 2.02 (1.80-8.00) x10^3/uL Lymph # (Auto) 0.35 L (0.60-5.00) 10^3/uL [place] # (Auto) 0.07 (0.00-1.50) 10^3/uL Eos # (Auto) 0.07 (0.00-1.50) 10^3/uL Baso # (Auto) 0.00 (0.00-0.50) 10^3/uL Immature Gran # (Auto) 0.08 (0.00-0.49) 10^3/uL Med Orders - Current: Current Medications Acetaminophen (Acetaminophen 325 Mg Tab) 650 mg PO Q4H PRN PRN Reason: Pain (Mild 1-3)/fever Albuterol/Ipratropium (Albuterol/Ipratropium 3.0-0.5 Mg/3 Ml Neb Soln) 3 ml NEB QIDRT [facility] Last Admin: 09/24/21 07:47 Dose: 3 ml Documented by: Allopurinol (Allopurinol 300 Mg Tab) 300 mg PO DAILY [facility] Last Admin: 09/24/21 07:47 Dose: 300 mg Documented by: Aspirin (Aspirin 325 Mg Tab) 325 mg PO DAILY [facility] Last Admin: 09/24/21 07:48 Dose: 325 mg Documented by: Enoxaparin Sodium (Enoxaparin 40 Mg/0.4 Ml Syringe) 40 mg SUBCUT Q24H [facility] Last Admin: 09/23/21 19:56 Dose: 40 mg Documented by: Ferrous Sulfate (Ferrous Sulfate 324 Mg Tab.Ec) 324 mg PO BIDMEALS [facility] Last Admin: 09/24/21 07:49 Dose: 324 mg Documented by: Furosemide (Furosemide 40 Mg Tab) 40 mg PO DAILY [facility] Last Admin: 09/24/21 07:48 Dose: 40 mg Documented by: Clindamycin Phosphate 300 mg/ (Premix) 50 mls @ 100 mls/hr IV Q6H [facility] Last Admin: 09/24/21 07:48 Dose: 100 mls/hr Documented by: Loperamide HCl (Loperamide 2 Mg Cap) 4 mg PO DAILY PRN PRN Reason: Diarrhea Morphine Sulfate (Morphine 15 Mg Tab.Er) 15 mg PO BID PRN PRN Reason: Pain Lenalidomide [ Revlimid] 20 Mg Cap Ptom 0 mg PO DAILY [facility] Last Admin: 09/24/21 07:53 Dose: 1 mg Documented by: Trospium (Sanctura) (60mg Er Cap Ptom) 0 each PO DAILY [facility] Last Admin: 09/24/21 07:53 Dose: 1 each Documented by: Ondansetron HCl (Ondansetron 4 Mg/2 Ml Sdv) 4 mg IV Q4H PRN PRN Reason: Nausea/Vomiting Potassium Chloride (Potassium Chloride 10 Meq Tab.Er) 20 meq PO DAILY [facility] Last Admin: 09/24/21 07:47 Dose: 20 meq Documented by: Sodium Chloride (Sodium Chloride 0.9% 10 Ml Syringe) 10 ml FLUSH ASDIRECTED PRN PRN Reason: Keep Vein Open Verapamil HCl (Verapamil 240 Mg Tab.Er) 240 mg PO DAILY [facility] Last Admin: 09/24/21 07:47 Dose: 240 mg Documented by: Discontinued Medications Ferrous Sulfate (Ferrous Sulfate 324 Mg Tab.Ec) 324 mg PO DAILY [facility] Trospium (Trospium 20 Mg Tab) 60 mg PO DAILY [facility] Last Admin: 09/22/21 09:16 Dose: Not Given Documented by: - Exam General: Reports: Alert, Oriented, Cooperative, No Acute Distress Lungs: Reports: Normal Respiratory Effort, Crackles (trace bilateral bases). Denies: Decreased Breath Sounds Cardiovascular: Reports: Regular Rate, Regular Rhythm GI/Abdominal Exam: Normal Bowel Sounds, Soft, No Organomegaly, No Distention Extremities: Non-Tender, Pedal Edema (trace bilateral, chronic stasis dermatitis) Skin: Reports: Warm, Dry, Intact Neurological: Reports: No New Focal Deficit Psy/Mental Status: Reports: Alert, Normal Affect, Normal Mood
== END 2021-09-24 13:20 | disposition home health service (06) | DRG 177 ==
LOC: UNDOADMIN 08:14 → CC.MS 08:14
PROVIDERS: ADMIT Physician Assistant Medical; ATTEND Family Medicine
DX: J69.0 Pneumonitis due to inhalation of food and vomit (principal); I50.23 Acute on chronic systolic (congestive) heart failure; Z79.82 Long term (current) use of aspirin; Z79.899 Other long term (current) drug therapy
CPT/HCPCS: 36415; 80048; 84550; 85025; 94640; 97110-GP; A9270-GY; J1650; J3490; J7620-GY

== ENCOUNTER 2021-10-01 15:55 | Inpatient (IN) | payer MEDICARE, OTHER ==
[2021-10-01 16:32] LABS: CHLORIDE,CL 97 mEq/L (98-106); SODIUM,NA 134 mEq/L (136-145)
[2021-10-01] MEDS ORDERED: Potassium Chloride Riders 40 MEQ in Premix Bag 1 BAG IV ONE (16:46)
[2021-10-01] MEDS ORDERED: Loperamide 2 MG Cap PO PRN (16:48)
[2021-10-01] MEDS ORDERED: Morphine 15 MG Tab.ER PO PRN (16:48)
[2021-10-01] MEDS ORDERED: Sodium Chloride 0.9% 500 ML IV SCH (17:15)
[2021-10-01] MEDS: Fluconazole 100 MG Tab PO SCH (17:47)
[2021-10-01] MEDS: Pantoprazole 40 MG Vial IVPUSH SCH (19:55)
[2021-10-01] MEDS: D5 1/2 NS w/ 10 mEq/L KCl 1,000 ML IV SCH (22:17)
[2021-10-02 07:37] LABS: CHLORIDE,CL 102 mEq/L (98-106); SODIUM,NA 134 mEq/L (136-145)
[2021-10-02] MEDS: Furosemide 40 MG Tab PO SCH (07:49)
[2021-10-02] MEDS: Trospium 20 MG Tab PO SCH (07:49)
[2021-10-02] MEDS: Ferrous Sulfate 324 MG Tab.EC PO SCH (07:49)
[2021-10-02] MEDS: Verapamil 240 MG Tab.ER PO SCH (07:49)
[2021-10-02] MEDS: Fluconazole 100 MG Tab PO SCH (07:49)
[2021-10-02] MEDS: Enoxaparin 30 MG/0.3 ML Syringe SUBCUT SCH (07:49)
[2021-10-02] MEDS: Pantoprazole 40 MG Vial IVPUSH SCH ×2 (07:50→19:52)
[2021-10-02] MEDS: LENALIDOMIDE 20 MG PO SCH (08:36)
[2021-10-02] MEDS ORDERED: Clotrimazole 10 MG Troche PO SCH (14:00)
[2021-10-02] MEDS: MAGIC MOUTHWASH PO PRN (14:49)
[2021-10-02] MEDS: Clotrimazole 10 MG Troche PO SCH ×2 (17:03→19:52)
[2021-10-02] MEDS: D5 1/2 NS w/ 10 mEq/L KCl 1,000 ML IV SCH (17:14)
[2021-10-03] MEDS: D5 1/2 NS w/ 10 mEq/L KCl 1,000 ML IV SCH ×2 (04:34→19:51)
[2021-10-03 07:15] LABS: CHLORIDE,CL 102 mEq/L (98-106); SODIUM,NA 135 mEq/L (136-145)
[2021-10-03] MEDS: Trospium 20 MG Tab PO SCH (07:19)
[2021-10-03] MEDS: Verapamil 240 MG Tab.ER PO SCH (07:20)
[2021-10-03] MEDS: Furosemide 40 MG Tab PO SCH (07:20)
[2021-10-03] MEDS: Ferrous Sulfate 324 MG Tab.EC PO SCH (07:20)
[2021-10-03] MEDS: Clotrimazole 10 MG Troche PO SCH ×5 (07:20→19:31)
[2021-10-03] MEDS: LENALIDOMIDE 20 MG PO SCH (07:20)
[2021-10-03] MEDS: Pantoprazole 40 MG Vial IVPUSH SCH ×2 (07:21→19:30)
[2021-10-03] MEDS: Enoxaparin 30 MG/0.3 ML Syringe SUBCUT SCH (07:21)
[2021-10-03] MEDS ORDERED: Potassium Chloride Riders 40 MEQ in Premix Bag 1 BAG IV ONE (10:03)
--- NOTE | 2021-10-03 10:08 | PCM.PN ---
- General Info Date of Service: 10/03/21 Admission Dx/Problem (Free Text): hypokalemia weakness oral thrush Functional Status: Reports: Pain Controlled - Review of Systems General: Reports: Weakness. Denies: Fever HEENT: Reports: Sore Throat, Other (mouth sore) Pulmonary: Reports: No Symptoms Gastrointestinal: Reports: No Symptoms Genitourinary: Reports: No Symptoms Neurological: Reports: Confusion - Patient Data Vitals - Most Recent: Last Vital Signs Temp 97.8 F 10/03/21 08:00 Pulse 81 10/03/21 08:00 Resp 14 10/03/21 08:00 BP 115/61 10/03/21 08:00 Pulse Ox 98 10/03/21 08:00 Weight - Most Recent: 113 lb 6.4 oz I&O - Last 24 Hours: Intake & Output 10/02/21 10/03/21 10/03/21 22:59 06:59 14:59 Intake Total 1000 Balance 1000 Lab Results Last 24 Hours: Laboratory Results - last 24 hr 10/03/21 10/03/21 Range/Units 06:50 06:50 WBC 2.4 L (4.0-11.0) 10^3/uL RBC 3.47 L (4.00-5.50) x10^6/uL Hgb 8.7 L (12.0-16.0) g/dL Hct 26.3 L (37.0-47.0) % MCV 75.8 L (83.0-97.0) fL MCH 25.1 L (27.0-32.0) pg MCHC 33.1 (32.0-36.0) g/dL RDW Coeff of John 20.7 H (11.0-15.0) % Plt Count 122 L (150-400) 10^3/uL Immature Gran % (Auto) 0.4 (0.0-4.9) % Neut % (Auto) 70.2 (41-71) % Lymph % (Auto) 17.4 L (24-44) % Dougherty % (Auto) 6.2 (0-10) % Eos % (Auto) 5.4 (0-6) % Baso % (Auto) 0.4 (0-1) % Neut # (Auto) 1.70 L (1.80-8.00) x10^3/uL Lymph # (Auto) 0.42 L (0.60-5.00) 10^3/uL Dougherty # (Auto) 0.15 (0.00-1.50) 10^3/uL Eos # (Auto) 0.13 (0.00-1.50) 10^3/uL Baso # (Auto) 0.01 (0.00-0.50) 10^3/uL Immature Gran # (Auto) 0.01 (0.00-0.49) 10^3/uL Sodium 135 L (136-145) mEq/L Potassium 2.5 L* D (3.5-5.0) mEq/L Chloride 102 (98-106) mEq/L Carbon Dioxide 24 (21-32) mmol/L BUN 7 (7-18) mg/dL Creatinine 0.7 (0.6-1.0) mg/dL Est Cr Clr Drug Dosing 44.34 mL/min Estimated GFR (MDRD) > 60 (>=60) mL/min Glucose 119 H (75-99) mg/dL Calcium 7.2 L (8.4-10.1) mg/dL Med Orders - Current: Current Medications Clotrimazole (Clotrimazole 10 Mg Jadiel) 10 mg PO 5XDAY [facility] Last Admin: 10/03/21 07:20 Dose: 10 mg Documented by: Enoxaparin Sodium (Enoxaparin 30 Mg/0.3 Ml Syringe) 30 mg SUBCUT Q24H [facility] Last Admin: 10/03/21 07:21 Dose: 30 mg Documented by: Ferrous Sulfate (Ferrous Sulfate 324 Mg Tab.Ec) 324 mg PO DAILY [facility] Last Admin: 10/03/21 07:20 Dose: 324 mg Documented by: Furosemide (Furosemide 40 Mg Tab) 40 mg PO DAILY [facility] Last Admin: 10/03/21 07:20 Dose: 40 mg Documented by: Potassium Chloride/Dextrose/Sod Cl (D5 1/2 Ns W/ 10 Meq/L Kcl) 1,000 mls @ 100 mls/hr IV ASDIRECTED [facility] Last Admin: 10/03/21 04:34 Dose: 100 mls/hr Documented by: Potassium Chloride 40 meq/ (Premix) 100 mls @ 25 mls/hr IV ONETIME ONE Stop: 10/03/21 14:02 Loperamide HCl (Loperamide 2 Mg Cap) 4 mg PO DAILY PRN PRN Reason: Diarrhea Morphine Sulfate (Morphine 15 Mg Tab.Er) 15 mg PO BID PRN PRN Reason: Pain Lenalidomide [ Revlimid] 20 Mg Capsule Ptom 0 mg PO DAILY [facility] Last Admin: 10/03/21 07:20 Dose: 20 mg Documented by: Magic Mouthwash (Suspension) 0 ml PO Q4H PRN PRN Reason: Other Last Admin: 10/02/21 14:49 Dose: 5 ml Documented by: Pantoprazole Sodium (Pantoprazole 40 Mg Vial) 40 mg IVPUSH Q12H [facility] Last Admin: 10/03/21 07:21 Dose: 40 mg Documented by: Trospium (Trospium 20 Mg Tab) 60 mg PO DAILY [facility] Last Admin: 10/03/21 07:19 Dose: 60 mg Documented by: Verapamil HCl (Verapamil 240 Mg Tab.Er) 240 mg PO DAILY [facility] Last Admin: 10/03/21 07:20 Dose: 240 mg Documented by: Discontinued Medications Clotrimazole (Clotrimazole 10 Mg Jadiel) 10 mg PO 5XDAY [facility] Last Admin: 10/02/21 15:36 Dose: Not Given Documented by: Fluconazole (Fluconazole 100 Mg Tab) 100 mg PO DAILY [facility] Last Admin: 10/02/21 07:49 Dose: 100 mg Documented by: Potassium Chloride 40 meq/ (Premix) 100 mls @ 25 mls/hr IV ONETIME ONE Stop: 10/01/21 20:45 Last Admin: 10/01/21 17:53 Dose: 25 mls/hr Documented by: Sodium Chloride (Normal Saline) 500 mls @ 100 mls/hr IV ASDIRECTED [facility] Last Admin: 10/01/21 17:49 Dose: 100 mls/hr Documented by: - Exam Quality Assessment: No: Supplemental Oxygen General: Alert Lungs: Clear to Auscultation, Normal Respiratory Effort Cardiovascular: Regular Rhythm GI/Abdominal Exam: Normal Bowel Sounds, Soft - Patient Data Lab Results Last 24 hrs: Laboratory Results - last 24 hr 10/03/21 10/03/21 Range/Units 06:50 06:50 WBC 2.4 L (4.0-11.0) 10^3/uL RBC 3.47 L (4.00-5.50) x10^6/uL Hgb 8.7 L (12.0-16.0) g/dL Hct 26.3 L (37.0-47.0) % MCV 75.8 L (83.0-97.0) fL MCH 25.1 L (27.0-32.0) pg MCHC 33.1 (32.0-36.0) g/dL RDW Coeff of John 20.7 H (11.0-15.0) % Plt Count 122 L (150-400) 10^3/uL Immature Gran % (Auto) 0.4 (0.0-4.9) % Neut % (Auto) 70.2 (41-71) % Lymph % (Auto) 17.4 L (24-44) % Dougherty % (Auto) 6.2 (0-10) % Eos % (Auto) 5.4 (0-6) % Baso % (Auto) 0.4 (0-1) % Neut # (Auto) 1.70 L (1.80-8.00) x10^3/uL Lymph # (Auto) 0.42 L (0.60-5.00) 10^3/uL Dougherty # (Auto) 0.15 (0.00-1.50) 10^3/uL Eos # (Auto) 0.13 (0.00-1.50) 10^3/uL Baso # (Auto) 0.01 (0.00-0.50) 10^3/uL Immature Gran # (Auto) 0.01 (0.00-0.49) 10^3/uL Sodium 135 L (136-145) mEq/L Potassium 2.5 L* D (3.5-5.0) mEq/L Chloride 102 (98-106) mEq/L Carbon Dioxide 24 (21-32) mmol/L BUN 7 (7-18) mg/dL Creatinine 0.7 (0.6-1.0) mg/dL Est Cr Clr Drug Dosing 44.34 mL/min Estimated GFR (MDRD) > 60 (>=60) mL/min Glucose 119 H (75-99) mg/dL Calcium 7.2 L (8.4-10.1) mg/dL Result Diagrams: 10/03/21 06:50 10/03/21 06:50 Sepsis Event Note - Evaluation Sepsis Screening Result: No Definite Risk - Focused Exam Vital Signs: Vital Signs Temp Pulse Resp BP Pulse Ox 10/03/21 08:00 97.8 F 81 14 115/61 98 - Problem List & Annotations (1) Hypokalemia SNOMED Code(s): 12389476 Code(s): E87.6 - HYPOKALEMIA Status: Acute Current Visit: Yes (2) CHF (congestive heart failure) SNOMED Code(s): 26033265 Code(s): I50.9 - HEART FAILURE, UNSPECIFIED Status: Chronic Priority: High Current Visit: No Qualifiers: (3) Peripheral edema SNOMED Code(s): 495485062 Code(s): R60.9 - EDEMA, UNSPECIFIED Status: Chronic Current Visit: No (4) Dysphagia SNOMED Code(s): 43001524, 348713259 Code(s): R13.10 - DYSPHAGIA, UNSPECIFIED Status: Resolved Priority: High Current Visit: No Qualifiers: - Problem List Review Problem List Initiated/Reviewed/Updated: Yes - My Orders Last 24 Hours: My Active Orders 10/02/21 14:21 Magic Mouthwash 0 ml PO Q4H PRN 10/02/21 16:49 Consult to Physical Therapy [PT Evaluation and Treatment] [CONS] Routine 10/02/21 17:00 Clotrimazole [Mycelex] 10 mg PO 5XDAY 10/03/21 10:03 Potassium Chloride Riders [KCL in Water 40 MEQ/100 ML] 40 meq Premix Bag 1 bag IV ONETIME 10/04/21 06:45 BASIC METABOLIC PANEL,BMP [CHEM] DAILY CBC WITH AUTO DIFF [HEME] DAILY - Plan Plan:: K= is down to 2.5 this morning. Will give 40 meq IV this AM. will continue with the magic mouthwash and the oral trouche to help with the oral thrush. will recheck K+ in the AM and supplement as needed.
[2021-10-03] MEDS ORDERED: Sodium Chloride 0.9% 500 ML IV SCH (10:30)
[2021-10-03] MEDS: MAGIC MOUTHWASH PO PRN (14:56)
[2021-10-04] MEDS: D5 1/2 NS w/ 10 mEq/L KCl 1,000 ML IV SCH ×2 (05:27→19:52)
[2021-10-04 07:15] LABS: CHLORIDE,CL 105 mEq/L (98-106); SODIUM,NA 136 mEq/L (136-145)
[2021-10-04] MEDS: Pantoprazole 40 MG Vial IVPUSH SCH ×2 (07:33→19:27)
[2021-10-04] MEDS: Enoxaparin 30 MG/0.3 ML Syringe SUBCUT SCH (07:34)
[2021-10-04] MEDS: Clotrimazole 10 MG Troche PO SCH ×5 (07:35→19:27)
[2021-10-04] MEDS: Furosemide 40 MG Tab PO SCH (07:35)
[2021-10-04] MEDS: Verapamil 240 MG Tab.ER PO SCH (07:35)
[2021-10-04] MEDS: Ferrous Sulfate 324 MG Tab.EC PO SCH (07:35)
[2021-10-04] MEDS: Trospium 20 MG Tab PO SCH (07:35)
[2021-10-04] MEDS: MAGIC MOUTHWASH PO PRN ×2 (07:35→16:47)
[2021-10-04] MEDS: LENALIDOMIDE 20 MG PO SCH (07:36)
[2021-10-04] MEDS ORDERED: Potassium Chloride Riders 40 MEQ in Premix Bag 1 BAG IV ONE (08:43)
--- NOTE | 2021-10-04 08:50 | PCM.PN ---
- General Info Date of Service: 10/04/21 Admission Dx/Problem (Free Text): hypokalemia weakness oral thrush dysphagia Subjective Update: Pt states that her mouth feels better and doesn't hurt like before. She still has complaints of sore throat. - Review of Systems General: Reports: Other (sore throat) HEENT: Reports: No Symptoms Pulmonary: Reports: No Symptoms Cardiovascular: Reports: No Symptoms. Denies: Edema Gastrointestinal: Reports: Difficulty Swallowing Genitourinary: Reports: No Symptoms - Patient Data Vitals - Most Recent: Last Vital Signs Temp 98.7 F 10/04/21 08:00 Pulse 76 10/04/21 08:00 Resp 13 10/04/21 08:00 BP 137/72 10/04/21 08:00 Pulse Ox 97 10/04/21 08:00 Weight - Most Recent: 115 lb 1.6 oz I&O - Last 24 Hours: Intake & Output 10/03/21 10/04/21 10/04/21 22:59 06:59 14:59 Intake Total 960 Balance 960 Lab Results Last 24 Hours: Laboratory Results - last 24 hr 10/04/21 10/04/21 Range/Units 06:50 06:50 WBC 2.9 L (4.0-11.0) 10^3/uL RBC 3.72 L (4.00-5.50) x10^6/uL Hgb 9.3 L (12.0-16.0) g/dL Hct 28.8 L (37.0-47.0) % MCV 77.4 L (83.0-97.0) fL MCH 25.0 L (27.0-32.0) pg MCHC 32.3 (32.0-36.0) g/dL RDW Coeff of John 20.9 H (11.0-15.0) % Plt Count 122 L (150-400) 10^3/uL Immature Gran % (Auto) 0.7 (0.0-4.9) % Neut % (Auto) 61.0 (41-71) % Lymph % (Auto) 25.9 (24-44) % Lyman % (Auto) 6.6 (0-10) % Eos % (Auto) 5.5 (0-6) % Baso % (Auto) 0.3 (0-1) % Neut # (Auto) 1.77 L (1.80-8.00) x10^3/uL Lymph # (Auto) 0.75 (0.60-5.00) 10^3/uL Lyman # (Auto) 0.19 (0.00-1.50) 10^3/uL Eos # (Auto) 0.16 (0.00-1.50) 10^3/uL Baso # (Auto) 0.01 (0.00-0.50) 10^3/uL Immature Gran # (Auto) 0.02 (0.00-0.49) 10^3/uL Sodium 136 (136-145) mEq/L Potassium 2.9 L* (3.5-5.0) mEq/L Chloride 105 (98-106) mEq/L Carbon Dioxide 26 (21-32) mmol/L BUN 6 L (7-18) mg/dL Creatinine 0.7 (0.6-1.0) mg/dL Est Cr Clr Drug Dosing 44.34 mL/min Estimated GFR (MDRD) > 60 (>=60) mL/min Glucose 104 H (75-99) mg/dL Calcium 7.2 L (8.4-10.1) mg/dL Med Orders - Current: Current Medications Clotrimazole (Clotrimazole 10 Mg Jadiel) 10 mg PO 5XDAY [facility] Last Admin: 10/04/21 07:35 Dose: 10 mg Documented by: Enoxaparin Sodium (Enoxaparin 30 Mg/0.3 Ml Syringe) 30 mg SUBCUT Q24H [facility] Last Admin: 10/04/21 07:34 Dose: 30 mg Documented by: Ferrous Sulfate (Ferrous Sulfate 324 Mg Tab.Ec) 324 mg PO DAILY [facility] Last Admin: 10/04/21 07:35 Dose: 324 mg Documented by: Furosemide (Furosemide 40 Mg Tab) 40 mg PO DAILY [facility] Last Admin: 10/04/21 07:35 Dose: 40 mg Documented by: Potassium Chloride/Dextrose/Sod Cl (D5 1/2 Ns W/ 10 Meq/L Kcl) 1,000 mls @ 100 mls/hr IV ASDIRECTED [facility] Last Admin: 10/04/21 05:27 Dose: 100 mls/hr Documented by: Sodium Chloride (Normal Saline) 500 mls @ 100 mls/hr IV ASDIRECTED [facility] Last Admin: 10/03/21 10:48 Dose: 100 mls/hr Documented by: Potassium Chloride 40 meq/ (Premix) 100 mls @ 25 mls/hr IV ONETIME ONE Stop: 10/04/21 12:42 Loperamide HCl (Loperamide 2 Mg Cap) 4 mg PO DAILY PRN PRN Reason: Diarrhea Morphine Sulfate (Morphine 15 Mg Tab.Er) 15 mg PO BID PRN PRN Reason: Pain Lenalidomide [ Revlimid] 20 Mg Capsule Ptom 0 mg PO DAILY [facility] Last Admin: 10/04/21 07:36 Dose: 20 mg Documented by: Magic Mouthwash (Suspension) 0 ml PO Q4H PRN PRN Reason: Other Last Admin: 10/04/21 07:35 Dose: 5 ml Documented by: Pantoprazole Sodium (Pantoprazole 40 Mg Vial) 40 mg IVPUSH Q12H [facility] Last Admin: 10/04/21 07:33 Dose: 40 mg Documented by: Trospium (Trospium 20 Mg Tab) 60 mg PO DAILY [facility] Last Admin: 10/04/21 07:35 Dose: 60 mg Documented by: Verapamil HCl (Verapamil 240 Mg Tab.Er) 240 mg PO DAILY [facility] Last Admin: 10/04/21 07:35 Dose: 240 mg Documented by: Discontinued Medications Clotrimazole (Clotrimazole 10 Mg Jadiel) 10 mg PO 5XDAY [facility] Last Admin: 10/02/21 15:36 Dose: Not Given Documented by: Fluconazole (Fluconazole 100 Mg Tab) 100 mg PO DAILY [facility] Last Admin: 10/02/21 07:49 Dose: 100 mg Documented by: Potassium Chloride 40 meq/ (Premix) 100 mls @ 25 mls/hr IV ONETIME ONE Stop: 10/01/21 20:45 Last Admin: 10/01/21 17:53 Dose: 25 mls/hr Documented by: Sodium Chloride (Normal Saline) 500 mls @ 100 mls/hr IV ASDIRECTED [facility] Last Admin: 10/01/21 17:49 Dose: 100 mls/hr Documented by: Potassium Chloride 40 meq/ (Premix) 100 mls @ 25 mls/hr IV ONETIME ONE Stop: 10/03/21 14:02 Last Admin: 10/03/21 10:16 Dose: 25 mls/hr Documented by: - Exam Quality Assessment: No: Supplemental Oxygen General: Alert Neck: Supple. No: Lymphadenopathy Lungs: Clear to Auscultation, Normal Respiratory Effort Cardiovascular: Regular Rate, Regular Rhythm GI/Abdominal Exam: Normal Bowel Sounds, Soft, Non-Tender Extremities: No Pedal Edema, Normal Capillary Refill Skin: Warm, Dry Psy/Mental Status: Alert - Patient Data Lab Results Last 24 hrs: Laboratory Results - last 24 hr 10/04/21 10/04/21 Range/Units 06:50 06:50 WBC 2.9 L (4.0-11.0) 10^3/uL RBC 3.72 L (4.00-5.50) x10^6/uL Hgb 9.3 L (12.0-16.0) g/dL Hct 28.8 L (37.0-47.0) % MCV 77.4 L (83.0-97.0) fL MCH 25.0 L (27.0-32.0) pg MCHC 32.3 (32.0-36.0) g/dL RDW Coeff of John 20.9 H (11.0-15.0) % Plt Count 122 L (150-400) 10^3/uL Immature Gran % (Auto) 0.7 (0.0-4.9) % Neut % (Auto) 61.0 (41-71) % Lymph % (Auto) 25.9 (24-44) % Lyman % (Auto) 6.6 (0-10) % Eos % (Auto) 5.5 (0-6) % Baso % (Auto) 0.3 (0-1) % Neut # (Auto) 1.77 L (1.80-8.00) x10^3/uL Lymph # (Auto) 0.75 (0.60-5.00) 10^3/uL Lyman # (Auto) 0.19 (0.00-1.50) 10^3/uL Eos # (Auto) 0.16 (0.00-1.50) 10^3/uL Baso # (Auto) 0.01 (0.00-0.50) 10^3/uL Immature Gran # (Auto) 0.02 (0.00-0.49) 10^3/uL Sodium 136 (136-145) mEq/L Potassium 2.9 L* (3.5-5.0) mEq/L Chloride 105 (98-106) mEq/L Carbon Dioxide 26 (21-32) mmol/L BUN 6 L (7-18) mg/dL Creatinine 0.7 (0.6-1.0) mg/dL Est Cr Clr Drug Dosing 44.34 mL/min Estimated GFR (MDRD) > 60 (>=60) mL/min Glucose 104 H (75-99) mg/dL Calcium 7.2 L (8.4-10.1) mg/dL Result Diagrams: 10/04/21 06:50 10/04/21 06:50 Sepsis Event Note - Evaluation Sepsis Screening Result: No Definite Risk - Focused Exam Vital Signs: Vital Signs Temp Pulse Resp BP Pulse Ox 10/04/21 08:00 98.7 F 76 13 137/72 97 - Problem List & Annotations (1) Hypokalemia SNOMED Code(s): 17184291 Code(s): E87.6 - HYPOKALEMIA Status: Acute Priority: High Current Visit: Yes (2) CHF (congestive heart failure) SNOMED Code(s): 10442750 Code(s): I50.9 - HEART FAILURE, UNSPECIFIED Status: Chronic Priority: Medium Current Visit: No Qualifiers: (3) Peripheral edema SNOMED Code(s): 736121979 Code(s): R60.9 - EDEMA, UNSPECIFIED Status: Chronic Priority: Medium Current Visit: No (4) Dysphagia SNOMED Code(s): 78769127, 779234552 Code(s): R13.10 - DYSPHAGIA, UNSPECIFIED Status: Resolved Priority: High Current Visit: No Qualifiers: - Problem List Review Problem List Initiated/Reviewed/Updated: Yes - My Orders Last 24 Hours: My Active Orders 10/03/21 10:30 Sodium Chloride 0.9% [Normal Saline] 500 ml IV ASDIRECTED 10/04/21 08:43 Potassium Chloride Riders [KCL in Water 40 MEQ/100 ML] 40 meq Premix Bag 1 bag IV ONETIME - Plan Plan:: K= is down to 2.5 this morning. Will give 40 meq IV this AM. will continue with the magic mouthwash and the oral trouche to help with the oral thrush. will recheck K+ in the AM and supplement as needed. 10/04/21 Her potassium is 2.9 this AM. will give additional 40 meq this AM and check level tomorrow AM will continue with the magic mouthwash as it does seem to be improving. Appetite is better as she is now eating a little No edema this AM. If this continues may be able to decrease her lasix which will also help with the potassium depletion.
[2021-10-04] MEDS ORDERED: Sodium Chloride 0.9% 500 ML IV SCH (09:00)
[2021-10-05] MEDS: D5 1/2 NS w/ 10 mEq/L KCl 1,000 ML IV SCH (05:45)
[2021-10-05] MEDS: Verapamil 240 MG Tab.ER PO SCH (07:16)
[2021-10-05] MEDS: Pantoprazole 40 MG Vial IVPUSH SCH ×2 (07:16→19:42)
[2021-10-05] MEDS: Clotrimazole 10 MG Troche PO SCH ×5 (07:16→19:39)
[2021-10-05] MEDS: Furosemide 40 MG Tab PO SCH (07:17)
[2021-10-05] MEDS: Enoxaparin 30 MG/0.3 ML Syringe SUBCUT SCH (07:17)
[2021-10-05] MEDS: LENALIDOMIDE 20 MG PO SCH (07:17)
[2021-10-05] MEDS: Ferrous Sulfate 324 MG Tab.EC PO SCH (07:17)
[2021-10-05] MEDS: MAGIC MOUTHWASH PO PRN (07:25)
[2021-10-05] MEDS: Trospium 20 MG Tab PO SCH ×3 (08:38→19:40)
[2021-10-05 10:14] LABS: CHLORIDE,CL 103 mEq/L (98-106); SODIUM,NA 135 mEq/L (136-145)
[2021-10-05] MEDS ORDERED: Potassium Chloride Riders 40 MEQ in Premix Bag 1 BAG IV ONE ×2 (10:51→13:00)
--- NOTE | 2021-10-05 11:46 | PN ---
DATE: 10/05/2021 S: Mrs. St is an 86-year-old who was admitted by Sondra Boland, direct admit after I believe a stroke and unable to eat and drink much at home. She had been being treated for oral thrush as well, but she just was not showing improvement. Her biggest issue since admission is that she has been having significant hypokalemia and is still not having adequate oral intake. She is on IV fluids with potassium replacement and she has been getting daily Lasix. Reviewed her chart. Her potassium levels have remained low under 3 and magnesium level on admit was normal. O: GENERAL: Her physical exam shows her to be pleasant and cooperative. She answers questions appropriately, sitting in her room. HEENT: Grossly benign. NECK: Neck veins are flat. LUNGS: Sounds are clear. CARDIAC: Tones appear regular. ABDOMEN: Nontender. EXTREMITIES: No peripheral edema seen. ASSESSMENT: 1. ORAL THRUSH. 2. POOR ORAL INTAKE. 3. HYPOKALEMIA. P: Recheck basic metabolic panel and magnesium today. I am going to hold her Lasix for now as she does not appear to be fluid overloaded at all. I am going to slow down her IV fluids just slightly and we will give her another potassium bump pending lab. KVNG/WENCESLAO /[id number]
[2021-10-05] MEDS ORDERED: Sodium Chloride 0.9% 500 ML IV SCH (13:00)
[2021-10-05] MEDS: D5 1/2 NS w/ 20 mEq/L KCl 1,000 ML IV SCH (19:39)
[2021-10-06] MEDS: Verapamil 240 MG Tab.ER PO SCH (07:58)
[2021-10-06] MEDS: Clotrimazole 10 MG Troche PO SCH ×5 (07:58→20:28)
[2021-10-06] MEDS: Trospium 20 MG Tab PO SCH ×2 (07:58→20:28)
[2021-10-06] MEDS: Pantoprazole 40 MG Vial IVPUSH SCH ×2 (07:58→20:28)
[2021-10-06] MEDS: Enoxaparin 30 MG/0.3 ML Syringe SUBCUT SCH (07:58)
[2021-10-06] MEDS: Ferrous Sulfate 324 MG Tab.EC PO SCH (07:58)
[2021-10-06] MEDS: MAGIC MOUTHWASH PO PRN (08:46)
[2021-10-06] MEDS: D5 1/2 NS w/ 20 mEq/L KCl 1,000 ML IV SCH ×2 (08:50→22:41)
[2021-10-06] MEDS: LENALIDOMIDE 20 MG PO SCH (09:16)
[2021-10-07 08:06] LABS: CHLORIDE,CL 105 mEq/L (98-106); SODIUM,NA 136 mEq/L (136-145)
[2021-10-07] MEDS: Pantoprazole 40 MG Vial IVPUSH SCH ×2 (08:13→19:17)
[2021-10-07] MEDS: Enoxaparin 30 MG/0.3 ML Syringe SUBCUT SCH (08:14)
[2021-10-07] MEDS: Verapamil 240 MG Tab.ER PO SCH (08:14)
[2021-10-07] MEDS: Clotrimazole 10 MG Troche PO SCH ×5 (08:14→19:22)
[2021-10-07] MEDS: Trospium 20 MG Tab PO SCH ×2 (08:14→19:22)
[2021-10-07] MEDS: Ferrous Sulfate 324 MG Tab.EC PO SCH (08:14)
[2021-10-07] MEDS: LENALIDOMIDE 20 MG PO SCH (08:16)
[2021-10-07] MEDS: MAGIC MOUTHWASH PO PRN (08:58)
[2021-10-07] MEDS: D5 1/2 NS w/ 20 mEq/L KCl 1,000 ML IV SCH (11:55)
[2021-10-08] MEDS: D5 1/2 NS w/ 20 mEq/L KCl 1,000 ML IV SCH (00:50)
[2021-10-08] MEDS: Pantoprazole 40 MG Vial IVPUSH SCH ×2 (08:10→19:57)
[2021-10-08] MEDS: Trospium 20 MG Tab PO SCH ×2 (08:10→20:02)
[2021-10-08] MEDS: Clotrimazole 10 MG Troche PO SCH ×5 (08:10→20:02)
[2021-10-08] MEDS: Verapamil 240 MG Tab.ER PO SCH (08:10)
[2021-10-08] MEDS: Enoxaparin 30 MG/0.3 ML Syringe SUBCUT SCH (08:10)
[2021-10-08] MEDS: Ferrous Sulfate 324 MG Tab.EC PO SCH (08:10)
[2021-10-08] MEDS: LENALIDOMIDE 20 MG PO SCH (08:11)
[2021-10-08] MEDS: Potassium Chloride 10 MEQ Tab.ER PO SCH (16:44)
[2021-10-09] MEDS: Enoxaparin 30 MG/0.3 ML Syringe SUBCUT SCH (08:08)
[2021-10-09] MEDS: Potassium Chloride 10 MEQ Tab.ER PO SCH ×2 (08:10→16:56)
[2021-10-09] MEDS: Trospium 20 MG Tab PO SCH ×2 (08:10→19:43)
[2021-10-09] MEDS: Clotrimazole 10 MG Troche PO SCH ×5 (08:10→19:43)
[2021-10-09] MEDS: Verapamil 240 MG Tab.ER PO SCH (08:10)
[2021-10-09] MEDS: Furosemide 40 MG Tab PO SCH (08:10)
[2021-10-09] MEDS: Pantoprazole 40 MG Vial IVPUSH SCH ×2 (08:11→19:39)
[2021-10-09] MEDS: Ferrous Sulfate 324 MG Tab.EC PO SCH (08:11)
[2021-10-10] MEDS: Enoxaparin 30 MG/0.3 ML Syringe SUBCUT SCH (07:32)
[2021-10-10] MEDS: Trospium 20 MG Tab PO SCH ×2 (07:37→19:17)
[2021-10-10] MEDS: Ferrous Sulfate 324 MG Tab.EC PO SCH (07:37)
[2021-10-10] MEDS: Potassium Chloride 10 MEQ Tab.ER PO SCH ×2 (07:37→17:06)
[2021-10-10] MEDS: Verapamil 240 MG Tab.ER PO SCH (07:37)
[2021-10-10] MEDS: Furosemide 40 MG Tab PO SCH (07:37)
[2021-10-10] MEDS: Pantoprazole 40 MG Vial IVPUSH SCH ×2 (07:37→19:20)
[2021-10-10] MEDS: Clotrimazole 10 MG Troche PO SCH ×5 (07:42→19:26)
[2021-10-10] MEDS: Sulfamethoxazole/Trimethoprim 800-160 MG Tab PO SCH ×2 (08:25→19:17)
[2021-10-10] MEDS: Temazepam 15 MG Cap PO PRN (20:52)
[2021-10-11] MEDS: Pantoprazole 40 MG Vial IVPUSH SCH ×2 (07:22→19:28)
[2021-10-11] MEDS: Enoxaparin 30 MG/0.3 ML Syringe SUBCUT SCH (07:22)
[2021-10-11] MEDS: Trospium 20 MG Tab PO SCH ×2 (07:23→19:28)
[2021-10-11] MEDS: Ferrous Sulfate 324 MG Tab.EC PO SCH (07:23)
[2021-10-11] MEDS: Sulfamethoxazole/Trimethoprim 800-160 MG Tab PO SCH ×2 (07:23→19:28)
[2021-10-11] MEDS: Clotrimazole 10 MG Troche PO SCH ×5 (07:23→19:28)
[2021-10-11] MEDS: Potassium Chloride 10 MEQ Tab.ER PO SCH ×2 (07:23→16:47)
[2021-10-11] MEDS: Verapamil 240 MG Tab.ER PO SCH (07:23)
[2021-10-11] MEDS: Furosemide 40 MG Tab PO SCH (07:23)
[2021-10-11] MEDS: Temazepam 15 MG Cap PO PRN (21:09)
[2021-10-12] MEDS: Ferrous Sulfate 324 MG Tab.EC PO SCH (07:46)
[2021-10-12] MEDS: Clotrimazole 10 MG Troche PO SCH ×3 (07:46→14:22)
[2021-10-12] MEDS: Furosemide 40 MG Tab PO SCH (07:46)
[2021-10-12] MEDS: Verapamil 240 MG Tab.ER PO SCH (07:47)
[2021-10-12] MEDS: Trospium 20 MG Tab PO SCH ×2 (07:47→19:33)
[2021-10-12] MEDS: Sulfamethoxazole/Trimethoprim 800-160 MG Tab PO SCH ×2 (07:47→19:33)
[2021-10-12] MEDS: Potassium Chloride 10 MEQ Tab.ER PO SCH ×2 (07:47→17:23)
[2021-10-12] MEDS: Pantoprazole 40 MG Vial IVPUSH SCH ×2 (07:47→19:32)
[2021-10-12] MEDS: Enoxaparin 30 MG/0.3 ML Syringe SUBCUT SCH (07:47)
[2021-10-13] MEDS: Verapamil 240 MG Tab.ER PO SCH (07:36)
[2021-10-13] MEDS: Pantoprazole 40 MG Vial IVPUSH SCH (07:36)
[2021-10-13] MEDS: Sulfamethoxazole/Trimethoprim 800-160 MG Tab PO SCH ×2 (07:36→19:35)
[2021-10-13] MEDS: Trospium 20 MG Tab PO SCH ×2 (07:36→19:35)
[2021-10-13] MEDS: Enoxaparin 30 MG/0.3 ML Syringe SUBCUT SCH (07:36)
[2021-10-13] MEDS: Potassium Chloride 10 MEQ Tab.ER PO SCH ×2 (07:36→17:09)
[2021-10-13] MEDS: Ferrous Sulfate 324 MG Tab.EC PO SCH (07:36)
[2021-10-13] MEDS: Furosemide 40 MG Tab PO SCH (07:36)
[2021-10-14] MEDS: Enoxaparin 30 MG/0.3 ML Syringe SUBCUT SCH ×2 (05:05→07:00)
[2021-10-14] MEDS: Potassium Chloride 10 MEQ Tab.ER PO SCH ×3 (05:11→16:31)
[2021-10-14] MEDS: Trospium 20 MG Tab PO SCH ×3 (05:12→19:39)
[2021-10-14] MEDS: Sulfamethoxazole/Trimethoprim 800-160 MG Tab PO SCH ×3 (05:13→19:39)
[2021-10-14] MEDS: Pantoprazole 40 MG Tab.CR PO SCH ×2 (05:14→06:59)
[2021-10-14] MEDS: Ferrous Sulfate 324 MG Tab.EC PO SCH ×2 (05:21→06:59)
[2021-10-14] MEDS: Verapamil 240 MG Tab.ER PO SCH ×2 (05:21→06:59)
[2021-10-14] MEDS: Furosemide 40 MG Tab PO SCH (16:00)
[2021-10-14] MEDS ORDERED: Furosemide 40 MG Tab PO ONE (16:15)
[2021-10-15] MEDS: Furosemide 40 MG Tab PO SCH (08:37)
[2021-10-15] MEDS: Potassium Chloride 10 MEQ Tab.ER PO SCH ×2 (08:37→18:51)
[2021-10-15] MEDS: Sulfamethoxazole/Trimethoprim 800-160 MG Tab PO SCH ×2 (08:38→19:30)
[2021-10-15] MEDS: Trospium 20 MG Tab PO SCH ×2 (08:38→19:31)
[2021-10-15] MEDS: Ferrous Sulfate 324 MG Tab.EC PO SCH (08:38)
[2021-10-15] MEDS: Verapamil 240 MG Tab.ER PO SCH (08:39)
[2021-10-15] MEDS: Pantoprazole 40 MG Tab.CR PO SCH (08:40)
[2021-10-15] MEDS: Enoxaparin 30 MG/0.3 ML Syringe SUBCUT SCH (08:45)
[2021-10-16] MEDS: Pantoprazole 40 MG Tab.CR PO SCH (07:07)
[2021-10-16] MEDS: Potassium Chloride 10 MEQ Tab.ER PO SCH (07:43)
[2021-10-16] MEDS: Enoxaparin 30 MG/0.3 ML Syringe SUBCUT SCH (07:43)
[2021-10-16] MEDS: Verapamil 240 MG Tab.ER PO SCH (07:46)
[2021-10-16] MEDS: Trospium 20 MG Tab PO SCH (07:47)
[2021-10-16] MEDS: Ferrous Sulfate 324 MG Tab.EC PO SCH (07:48)
[2021-10-16] MEDS: Furosemide 40 MG Tab PO SCH (07:48)
[2021-10-16] MEDS: Sulfamethoxazole/Trimethoprim 800-160 MG Tab PO SCH (07:49)
--- NOTE | 2021-10-16 10:22 | DISCH ---
ADMISSION DIAGNOSES: 1. Hypokalemia. 2. Weakness. 3. Oral thrush. 4. Lymphoma. DISCHARGE DIAGNOSIS: 1. ADVANCED LYMPHOMA. 2. ORAL THRUSH. 3. HYPOKALEMIA. 4. WEAKNESS. 5. POOR ORAL INTAKE. HISTORY: The patient is an 86-year-old female who I believe was recently in our facility for similar complaints including pneumonia and CHF. She was sent home and family could not take care of her. She was starting to have some more dysphasia, they questioned of a small stroke. Nevertheless, she was showing decline in oral intake, having signs of oral thrush, and was brought back for direct admit by Sondra. At the time she was admitted, she had a potassium that was under 3 with a normal magnesium. HOSPITAL COURSE: Over the course of the last 10 days, the patient has improved. She has gotten much stronger. She is eating better. Her thrush has resolved. She did have a culture of her throat which showed E. coli and so she was put on Bactrim and she is about to finish that. Her potassium was corrected with IV therapy and now was on orals and she is tolerating that well. All-in-all, her weakness has improved. She is ambulating with assist with a walker, and family and her have decided to quit her chemotherapeutic agent for her lymphoma, and basically go to [facility]. She is on MS Contin and seems to be having no pain at this time. Most of her medications are unchanged other than another 5 days of Bactrim. COMPLICATIONS: During her stay were none. CONSULTATIONS: PT. DISPOSITION: Transferred to [facility]. KVNG/WENCESLAO /[id number]
== END 2021-10-16 10:30 | DRG 641 ==
LOC: CC.MS 15:55 → UNDOADMIN 15:55 → CC.MS 16:01
PROVIDERS: ADMIT Physician Assistant Medical; ATTEND Family Medicine
DX: E87.6 Hypokalemia (principal); B37.0 Candidal stomatitis; C85.90 Non-Hodgkin lymphoma, unspecified, unspecified site; I50.9 Heart failure, unspecified; B96.20 Unspecified Escherichia coli [E. coli] as the cause of diseases classified elsewhere; Z20.822 Contact with and (suspected) exposure to COVID-19; Z79.82 Long term (current) use of aspirin; Z79.899 Other long term (current) drug therapy; Z88.8 Allergy status to other drugs, medicaments and biological substances
CPT/HCPCS: 36415; 80048; 80053; 83735; 85025; 87070; 87077; 87186; 97110-GP; 97161-GP; A9270-GY; C9113; J1650; J3480; J7040; U0002